=== PATIENT | male | born 1950 | race Caucasian/White ===

== ENCOUNTER 2020-08-23 08:04 | Outpatient (REF) | payer BC, SELFPAY ==
[2020-08-23 10:12] LABS: Hematocrit 42.4 % (42-52); Hemoglobin 14.6 g/dl (14.0-18.0); Mean Corpuscular HGB Conc 34.4 g/dl (31.0-36.0); Mean Corpuscular Hemoglobin 31.5 pg (27.0-33.0); Mean Corpuscular Volume 91.4 fL (80-98); Mean Platelet Volume 11.6 fL (9.4-12.4); Platelet Count 191 X10*3/uL (160-400); Red Blood Count 4.64 X10*6/uL (4.60-5.80); Red Cell Distribution Width 12.4 % (11.0-16.0); White Blood Count 6.2 X10*3/uL (4.8-10.8)
[2020-08-23 10:27] LABS: Estimated Average Glucose 223 mg/dL; Hemoglobin A1c % 9.4 %
[2020-08-23 10:42] LABS: Alanine Aminotransferase 17 U/L (0-40); Albumin Level 4.5 g/dL (3.5-5.0); Alkaline Phosphatase 60 U/L (39-117); Anion Gap 14 (12-20); Aspartate Amino Transferase 15 U/L (5-37); Bilirubin Total 1.2 mg/dL (0.0-1.0); Blood Urea Nitrogen 9 mg/dL (9-16); Calcium 8.9 mg/dL (8.4-10.2); Carbon Dioxide 26 mmol/L (22-29); Chloride 103 mmol/L (96-108); Cholesterol 119 mg/dL; Estimated Glomerular Filt Rate > 60; Glucose Fasting 214 mg/dL (60-99); HDL Cholesterol 42 mg/dL; LDL Cholesterol Calculated 53 mg/dl; Potassium 4.2 mmol/L (3.3-5.1); Sodium 139 mmol/L (135-145); Total Protein 6.6 g/dL (6.5-8.0); Triglycerides 121 mg/dL
[2020-08-23 11:07] LABS: Prostate Specific Antigen Scr 0.18 ng/mL (<0.05-4.0); TSH reflex Free T4 2.24 uIU/mL (0.32-4.0)
== END 2020-08-23 08:05 | disposition home or self-care (01) ==
LOC: HO.10HDL 08:04
PROVIDERS: Visit Provider Physician Assistant
DX: E11.9 Type 2 diabetes mellitus without complications (principal); E78.5 Hyperlipidemia, unspecified; I10 Essential (primary) hypertension; I25.10 Atherosclerotic heart disease of native coronary artery without angina pectoris; Z12.5 Encounter for screening for malignant neoplasm of prostate
CPT/HCPCS: 36415; 80053; 80061; 83036; 84153; 84443; 85027

== ENCOUNTER → 2020-10-11 09:09 | Outpatient (BNVA) | payer BC, SELFPAY | PROVIDERS: PCP Internal Medicine; Visit Provider Nurse Practitioner Gerontology | DX: E11.65 Type 2 diabetes mellitus with hyperglycemia (principal); E11.42 Type 2 diabetes mellitus with diabetic polyneuropathy; E66.01 Morbid (severe) obesity due to excess calories; Z68.35 Body mass index [BMI] 35.0-35.9, adult; I10 Essential (primary) hypertension | CPT/HCPCS: 82947 ==

== ENCOUNTER → 2020-11-26 13:26 | Outpatient (BNVA) | payer BC, SELFPAY | PROVIDERS: PCP Internal Medicine; Visit Provider Nurse Practitioner Gerontology | DX: E11.65 Type 2 diabetes mellitus with hyperglycemia (principal); E11.42 Type 2 diabetes mellitus with diabetic polyneuropathy; I10 Essential (primary) hypertension; E66.01 Morbid (severe) obesity due to excess calories; Z68.35 Body mass index [BMI] 35.0-35.9, adult | CPT/HCPCS: 82947 ==

== ENCOUNTER → 2020-12-09 14:28 | Outpatient (BNVA) | payer BC, SELFPAY | PROVIDERS: PCP Internal Medicine; Visit Provider Nurse Practitioner Gerontology | DX: E11.42 Type 2 diabetes mellitus with diabetic polyneuropathy (principal); I10 Essential (primary) hypertension; E66.01 Morbid (severe) obesity due to excess calories; Z68.35 Body mass index [BMI] 35.0-35.9, adult | CPT/HCPCS: 82947 ==

== ENCOUNTER 2021-02-21 14:01 | Outpatient (REF) | payer MEDICARE, SELFPAY ==
--- NOTE | ~2021-02-21 | XR_ITS ---
EXAMINATION: XR SHOULDER, LEFT CLINICAL INFORMATION: Left shoulder pain. COMPARISON: None TECHNIQUE: AP external rotation, Grashey, scapular Y, and axillary views of the left shoulder. FINDINGS: There is mild loss of the left glenohumeral and AC joint space with moderate periarticular spurring. No fracture or dislocation is seen. The soft tissues are normal. 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 There is hypertrophic bony spurring around the left AC joint. No acute fracture or dislocation.
== END 2021-02-21 14:02 | disposition home or self-care (01) ==
LOC: HO.XRAY 14:01
PROVIDERS: PCP Internal Medicine; Visit Provider Internal Medicine
DX: M25.512 Pain in left shoulder (principal)
CPT/HCPCS: 73030

== ENCOUNTER → 2021-03-18 14:27 | Outpatient (BNVA) | payer MEDICARE, SELFPAY | PROVIDERS: PCP Internal Medicine; Visit Provider Nurse Practitioner Gerontology | DX: E11.65 Type 2 diabetes mellitus with hyperglycemia (principal); E11.42 Type 2 diabetes mellitus with diabetic polyneuropathy; E66.01 Morbid (severe) obesity due to excess calories; I10 Essential (primary) hypertension; E78.5 Hyperlipidemia, unspecified; Z68.34 Body mass index [BMI] 34.0-34.9, adult; Z79.84 Long term (current) use of oral hypoglycemic drugs; Z79.899 Other long term (current) drug therapy | CPT/HCPCS: 82947; 99212 ==

== ENCOUNTER → 2021-07-29 10:08 | Outpatient (BNVA) | payer MEDICARE, SELFPAY | PROVIDERS: PCP Internal Medicine; Visit Provider Nurse Practitioner Gerontology | DX: E11.9 Type 2 diabetes mellitus without complications (principal); E78.5 Hyperlipidemia, unspecified; E66.01 Morbid (severe) obesity due to excess calories; I10 Essential (primary) hypertension; R23.4 Changes in skin texture; Z68.35 Body mass index [BMI] 35.0-35.9, adult; Z79.84 Long term (current) use of oral hypoglycemic drugs | CPT/HCPCS: 82947; 83036; 99212 ==

== ENCOUNTER 2021-11-10 07:49 | Outpatient (REF) | payer MEDICARE, SELFPAY ==
[2021-11-10 11:49] LABS: Alanine Aminotransferase 24 U/L (0-40); Albumin Level 4.5 g/dL (3.5-5.0); Alkaline Phosphatase 71 U/L (39-117); Anion Gap 11 (12-20); Aspartate Amino Transferase 16 U/L (5-37); Bilirubin Total 0.9 mg/dL (0.0-1.0); Blood Urea Nitrogen 11 mg/dL (9-16); Calcium 9.9 mg/dL (8.4-10.2); Carbon Dioxide 24 mmol/L (22-29); Chloride 109 mmol/L (96-108); Cholesterol 124 mg/dL; Estimated Glomerular Filt Rate > 60; Glucose Fasting 149 mg/dL (60-99); HDL Cholesterol 39 mg/dL; LDL Cholesterol Calculated 47 mg/dl; Potassium 4.3 mmol/L (3.3-5.1); Sodium 140 mmol/L (135-145); Total Protein 6.8 g/dL (6.5-8.0); Triglycerides 191 mg/dL
[2021-11-10 12:35] LABS: Creatinine Urine 160.26 mg/dL; Microalbum/Creatinine Ratio Ur 16.2 ug/mg cr
[2021-11-10 13:36] LABS: Reflex LDLD? No
== END 2021-11-10 07:50 | disposition home or self-care (01) ==
LOC: HO.10HDL 07:49
PROVIDERS: Nurse Practitioner Gerontology; Visit Provider Internal Medicine
DX: E11.42 Type 2 diabetes mellitus with diabetic polyneuropathy (principal); I48.91 Unspecified atrial fibrillation
CPT/HCPCS: 36415; 80053; 80061; 82043

== ENCOUNTER → 2021-11-12 14:45 | Outpatient (BNVA) | payer MEDICARE, SELFPAY | PROVIDERS: PCP Internal Medicine; Visit Provider Nurse Practitioner Gerontology | DX: E11.42 Type 2 diabetes mellitus with diabetic polyneuropathy (principal); I10 Essential (primary) hypertension; E78.5 Hyperlipidemia, unspecified; E66.01 Morbid (severe) obesity due to excess calories; Z68.35 Body mass index [BMI] 35.0-35.9, adult; Z79.84 Long term (current) use of oral hypoglycemic drugs; Z79.899 Other long term (current) drug therapy | CPT/HCPCS: 82947; 83036; 99212 ==

== ENCOUNTER 2022-09-18 08:22 | Day surgery (SDC) | payer MEDICARE, SELFPAY ==
--- NOTE | 2022-09-17 11:03 | HO.ANESPROP2 ---
Documented by User: Bridget Bravo NP 09/17/22 11:07 HPI - Anesthesia Eval Consult details Narrative: 72yo M for Colonoscopy Plavix/ASA for hx stroke (15 years ago), CAD - follows PCP only. OK'd to stop preop. PMFSH Active Problems Active Problems: All Active Problems (Updated 01/20/22 @ 14:02 by Jose Kaplan MD) Physical exam (Acute) Cracked skin on feet (Acute) Obesity (Acute) Shoulder pain (Acute) Type 2 diabetes mellitus with hyperglycemia (Acute) Essential hypertension (Acute) Obesity due to excess calories (Acute) CAD (coronary artery disease) (Acute) DMII (diabetes mellitus, type 2) (Acute) HLD (hyperlipidemia) (Acute) Past Medical History Medical History Essential hypertension Hyperlipidemia LDL goal <100 Obesity Obesity due to excess calories Sleep apnea Stroke Type 2 diabetes mellitus with hyperglycemia Family History Family History Father Myocardial infarction Colon cancer Mother CHF (congestive heart failure) Brother Colon cancer Surgical History Surgical History Hx of colonoscopy Social History Social History Household Members: None Housing: House Alcohol intake: current Alcohol intake frequency: 0-2 drinks per day Patient Tobacco Use Status: Former Tobacco user Tobacco use type: Cigarette Cigarettes Per Day: 2 e-Cigarette/Vaping Use: Never Used Second Hand Smoke Exposure: No Use of substances other than those prescribed or required for medical reasons: No Are you DNR?: No Advance Directives: No Advance Directives Information Provided: Yes Recently lost weight without trying: No Nutrition Risks: No Nutritional Risk service: No Current occupational status: retired Cognitive needs: No Hearing needs: No Vision needs: No Meds Allergies Allergy/AdvReac Type Severity Reaction Status Date / Time No Known Allergies Allergy Unknown Verified 01/20/22 13:42 [No Known Allergies*] Home Medications Medication Instructions Recorded Confirmed Last Taken Type aspirin 81 mg tablet,delayed 81 mg PO DAILY 06/03/20 09/18/22 Unknown History release (Adult Low Dose Aspirin) Exam Exam Date and Time: September 17, 2022 1103 Assessment and Plan Assessment Anesthesia Assessment: Chart Reviewed Documented by User: Estefany Todd MD 09/18/22 11:00 HPI - Anesthesia Eval Consult details Narrative: 72yo M for Colonoscopy Plavix/ASA for hx stroke (15 years ago), CAD - follows PCP only. OK'd to stop preop. Plavix last dose 09/12/22. No aspirin for over 6 months. PMFSH Active Problems Active Problems: All Active Problems (Updated 10/08/22 @ 08:50 by Estefany Todd MD) Physical exam (Acute) Cracked skin on feet (Acute) Obesity (Acute) Shoulder pain (Acute) Type 2 diabetes mellitus with hyperglycemia (Acute) Essential hypertension (Acute) Obesity due to excess calories (Acute) CAD (coronary artery disease) (Acute) DMII (diabetes mellitus, type 2) (Acute). Denies chest pain, NC history HLD (hyperlipidemia) (Acute) ELIU. Does not use CPAP machine Past Medical History Medical History Essential hypertension Hyperlipidemia LDL goal <100 Obesity Obesity due to excess calories Sleep apnea Stroke Type 2 diabetes mellitus with hyperglycemia Family History Family History Father Myocardial infarction Colon cancer Mother CHF (congestive heart failure) Brother Colon cancer Family history of problems with anesthesia: No Surgical History Surgical History Hx of colonoscopy History of Problems with Anesthesia: No Social History Social History Household Members: None Housing: House Alcohol intake: current Alcohol intake frequency: 0-2 drinks per day Patient Tobacco Use Status: Former Tobacco user Tobacco use type: Cigarette Cigarettes Per Day: 2 e-Cigarette/Vaping Use: Never Used Second Hand Smoke Exposure: No Use of substances other than those prescribed or required for medical reasons: No Are you DNR?: No Advance Directives: No Advance Directives Information Provided: Yes Recently lost weight without trying: No Nutrition Risks: No Nutritional Risk service: No Current occupational status: retired Cognitive needs: No Hearing needs: No Vision needs: No Meds Allergies Allergy/AdvReac Type Severity Reaction Status Date / Time No Known Allergies Allergy Unknown Verified 01/20/22 13:42 [No Known Allergies*] Home Medications Medication Instructions Recorded Confirmed Last Taken Type aspirin 81 mg tablet,delayed 81 mg PO DAILY 06/03/20 09/18/22 Unknown History release (Adult Low Dose Aspirin) Exam Height,Weight and Vital Signs: Height 5 ft 7 in Weight 99.79 kg Vital Signs Temp Pulse Resp BP Pulse Ox O2 Del Method 97.5 F 108 H 16 114/70 94 09/18/22 09:09 09/18/22 09:09 09/18/22 09:09 09/18/22 09:09 09/18/22 09:09 09/18/22 09:09 Pertinent Lab Results Pertinent Lab Results: Lab Results 09/18/22 Range/Units 08:59 POC Glucose 166 H (60-115) mg/dL Airway Mallampati Class: II TM Dist: >3cm Neck ROM: Full Loose/Missing/Broken Teeth: Yes (Some missing teeth back. Caps top front intact) Heart: RRR Lungs: CTAB Assessment and Plan Assessment Anesthesia Assessment: Anesthesia Plan Discussed Final Anesthetic Review Family History of Problems with Anesthesia: No History of Problems with Anesthesia: No NPO: Yes ASA Class: III Final Preanesthetic Review: No Changes in Pt Med Stat, Meds/Allgs Chart Reviewed, Consent Obtained/Reviewed and Anes Risks/Benef Reviewed Patient Risk: Intermediate Procedure Risk: Low Assessment/Block/Sedation in SS: Assess/Block/Sedation-SS Anesthetic Plan Anesthetic Plan: MAC: Disposition: Standard PACU
[2022-09-18 08:48] VITALS: BMI 34.4
[2022-09-18 09:03] LABS: Glucose, Whole Blood 166 mg/dL (60-115)
[2022-09-18 09:09] VITALS: BP 114/70; PULSE 108; RESP 16; TEMP 36.4; O2SAT 94
[2022-09-18] MEDS: Lactated Ringers 1,000 ML 100 ML IVCONT (09:21)
[2022-09-18 10:31] VITALS: BP 133/73; PULSE 87; RESP 16; TEMP 36.1; O2SAT 95
--- NOTE | 2022-09-18 10:36 | P.BOP_ITS ---
Brief Operative Note Date of Service: 09/18/22 Pre-op diagnosis: Screening Post-op diagnosis: other (Polyps) Procedure: Colonoscopy to the cecum and TI with bx/removal of polyps Surgeon: Pranay Dawson Anesthesia: MAC Was an Furnace Operator And Tender used for this Procedure?: No Estimated blood loss (mL): 2.0 Pathology: other (A. Proximal ascending colon polyp B. Polyp at 30cm) Condition: stable Disposition: PACU
[2022-09-18 10:46] VITALS: BP 114/62; PULSE 74; RESP 18; TEMP 36.9; O2SAT 95
--- NOTE | 2022-09-18 22:44 | OP_ITS ---
SURGEON: Pranay Dawson MD INDICATIONS: The patient presents for evaluation of colorectal cancer screening and prior history of colon polyps. Full consent has been obtained from him for this, including risks of bleeding and perforation. PREOPERATIVE DIAGNOSIS: POSTOPERATIVE DIAGNOSIS: PROCEDURE PERFORMED: Colonoscopy to the cecum and terminal ileum with biopsy and removal of polyp. ESTIMATED BLOOD LOSS: COMPLICATIONS: ANESTHESIA: Medication used, monitored anesthesia care. ASSISTANTS: SPECIMENS: PREOPERATIVE DIAGNOSES: Colorectal cancer screening and personal history of colon polyps. POSTOPERATIVE DIAGNOSES: Colorectal cancer screening and personal history of colon polyps, diverticulosis, and internal hemorrhoids. DESCRIPTION OF PROCEDURE: The patient was placed in the left lateral decubitus position. The digital rectal exam revealed no abnormalities. The Olympus video pediatric colonoscope was entered into the rectum and advanced easily to the cecum. Once in the cecum, I did identify a normal-appearing cecal pouch with appendiceal orifice and a normal-appearing ileocecal valve. The terminal ileum was cannulated and appeared normal. The scope was withdrawn back in the colon. The entire cecum and ileocecal valve appeared normal. The scope was then slowly withdrawn assessing all mucosal surfaces carefully. Preparation was excellent. In the proximal ascending colon was a flat, approximately 4 mm polyp, which was biopsied and completely removed with a cold biopsy forceps. At 30 cm, was a flat, approximately 5 mm grossly adenomatous polyp, which was biopsied and removed completely with a cold biopsy forceps. There were several hyperplastic appearing polyps in the sigmoid colon and rectum, but these were not biopsied nor removed given their gross appearance and the fact that he is to go back on his Plavix. I did not visualize any sign of colitis nor angiodysplasia. There is a mild amount of sigmoid diverticulosis. In the rectum, the scope was retroflexed visualizing internal hemorrhoids, but no other pathology. The rectal mucosa appeared normal. The scope was straightened and withdrawn from the patient. He tolerated the procedure well and was returned to the recovery area in stable condition. IMPRESSION: 1. Colon polyps. 2. Diverticulosis. 3. Internal hemorrhoids. PLAN: The results of the biopsy will be checked. I would recommend a repeat colonoscopy in 5 years. He was advised to resume his Plavix in 48 hours. He will otherwise see me on a p.r.n. basis. MD LIA Smith/HECTOR / [phone]
== END 2022-09-18 11:10 | disposition home or self-care (01) ==
PROVIDERS: PCP Internal Medicine; Visit Provider Internal Medicine
PROC: 0DJD8ZZ Inspection of Lower Intestinal Tract, Via Natural or Artificial Opening Endoscopic (ICD-10-PCS; CPT 45378; principal; 2022-09-18 09:30)
DX: Z12.11 Encounter for screening for malignant neoplasm of colon (principal); Z86.010 Personal history of colon polyps; Z80.0 Family history of malignant neoplasm of digestive organs; D12.2 Benign neoplasm of ascending colon; D12.5 Benign neoplasm of sigmoid colon; K57.30 Diverticulosis of large intestine without perforation or abscess without bleeding; K64.8 Other hemorrhoids; I10 Essential (primary) hypertension; E11.9 Type 2 diabetes mellitus without complications; G47.30 Sleep apnea, unspecified; Z86.73 Personal history of transient ischemic attack (TIA), and cerebral infarction without residual deficits; Z79.899 Other long term (current) drug therapy; Z79.01 Long term (current) use of anticoagulants; Z79.85 Long-term (current) use of injectable non-insulin antidiabetic drugs
CPT/HCPCS: 45380; 82947; 88305

== ENCOUNTER 2023-06-30 10:17 | Outpatient (REF) | payer MEDICARE, SELFPAY ==
[2023-06-30 13:24] LABS: MANUAL DIFF FLAG NO
[2023-06-30 13:32] LABS: Basophils Percent Auto 0.6 % (0-2); Eosinophils Percent Auto 0.6 % (0-4); Hematocrit 41.3 % (42.0-52.0); Hemoglobin 14.2 g/dl (14.0-18.0); Imm Gran Abs Auto 0.01 X10*3/uL (0.00-0.03); Imm Gran Pct Auto 0.1 % (0.0-0.4); Lymphocytes Absolute Auto 2.1 X10*3/uL (1.2-4.9); Lymphocytes Percent Auto 28.9 % (20-40); Mean Corpuscular HGB Conc 34.4 g/dl (31.0-36.0); Mean Corpuscular Hemoglobin 31.3 pg (27.0-33.0); Mean Platelet Volume 10.7 fL (9.4-12.4); Monocytes Absolute Auto 0.5 X10*3/uL (0.1-1.2); Monocytes Percent Auto 7.3 % (2-11); Neutrophils Absolute Auto 4.5 x10*3/uL (2.0-8.3); Neutrophils Percent Auto 62.5 % (45-73); Platelet Count 207 X10*3/uL (160-400); Red Blood Count 4.54 X10*6/uL (4.60-5.80); Red Cell Distribution Width 12.9 % (11.0-16.0); White Blood Count 7.1 X10*3/uL (4.8-10.8)
[2023-06-30 13:50] LABS: Estimated Average Glucose 131 mg/dL; Hemoglobin A1c % 6.2 % (<6.0)
[2023-06-30 14:01] LABS: Microalbum/Creatinine Ratio Ur 18.7 ug/mg cr (<30)
[2023-06-30 14:05] LABS: Alanine Aminotransferase 21 U/L (0-40); Albumin Level 4.3 g/dL (3.5-5.0); Alkaline Phosphatase 63 U/L (39-117); Anion Gap 16 (12-20); Aspartate Amino Transferase 15 U/L (5-37); Bilirubin Total 0.9 mg/dL (0.0-1.0); Blood Urea Nitrogen 9 mg/dL (9-16); Calcium 9.3 mg/dL (8.4-10.2); Carbon Dioxide 22 mmol/L (22-29); Chloride 107 mmol/L (96-108); Cholesterol 115 mg/dL (<200); Estimated Glomerular Filt Rate > 60; Glucose Fasting 146 mg/dL (60-99); HDL Cholesterol 42 mg/dL (>40); LDL Cholesterol Calculated 48 mg/dL (<100); Potassium 4.2 mmol/L (3.3-5.1); Sodium 141 mmol/L (135-145); Total Protein 6.9 g/dL (6.5-8.0); Triglycerides 129 mg/dL (<150)
[2023-06-30 14:06] LABS: Prostate Specific Antigen Scr 0.28 ng/mL (<0.05-4.0)
[2023-06-30 14:08] LABS: Thyroid Stimulating Hormone 2.29 uIU/mL (0.32-4.0)
== END 2023-06-30 10:18 | disposition home or self-care (01) ==
LOC: HO.10HDL 10:17
PROVIDERS: Visit Provider Internal Medicine
DX: Z00.00 Encounter for general adult medical examination without abnormal findings (principal); Z12.5 Encounter for screening for malignant neoplasm of prostate; D64.9 Anemia, unspecified; N28.9 Disorder of kidney and ureter, unspecified; E66.01 Morbid (severe) obesity due to excess calories; E78.5 Hyperlipidemia, unspecified; E03.9 Hypothyroidism, unspecified; E11.65 Type 2 diabetes mellitus with hyperglycemia; E11.69 Type 2 diabetes mellitus with other specified complication
CPT/HCPCS: 36415; 80053; 80061; 82043; 82570; 83036; 84153; 84443; 85025

== ENCOUNTER 2023-07-22 11:29 | Outpatient (AMB) | payer MEDICARE, SELFPAY ==
[2023-07-22 11:31] VITALS: BP 130/76; PULSE 76; O2SAT 96; BMI 34.6
--- NOTE | 2023-07-22 11:31 | MHC.PC.OV ---
Vital Signs 07/22/23 11:31 Height 5 ft 7 in Weight 221 lb BMI 34.6 BP 130/76 Blood Pressure Location Lt brachial Position Sitting Pulse 76 Pulse Source Pulse Oximeter Pulse Oximetry (%) 96 Oxygen Delivery Method Room Air Intake Visit Reasons: 6 month f/u Exercise Physiology Professor Required: No Can Sorter: Not Required per policy Accompanied by: Self / Same As Patient Allergies No Known Allergies [No Known Allergies*] Allergy (Unknown, Verified 07/22/23 11:32) Medication List - Last Reconciled 07/22/23 by Jose Kaplan MD atorvastatin 40 mg PO DAILY blood sugar diagnostic (Emay Softcomuch Verio test strips) To test blood glucose 3 times a day blood-glucose meter (Emay Softcomuch Verio Meter) To test blood glucose 3 times a day clopidogrel (Plavix) 75 mg PO DAILY 30 days dulaglutide (Trulicity) 1.5 mg (0.5 mL) subcut QWEEK 28 days flash glucose scanning reader ([facility] Seth 2 [place]) As directed flash glucose sensor (FreeStyle Seth 2 Sensor kit) As directed every 2 weeks glipizide 2.5 mg (1/2 x 5 mg) PO BID 90 days lancets (ClipMineTouch Delica Lancets) To test blood glucose 3 times a day lisinopril 5 mg PO DAILY metformin 1,000 mg PO BID 90 days Tobacco use date assessed: 01/21/23 Fall risk assessment: No Falls in past year Last assessed Fall Risk: 07/22/23 Dental Screening Dental Screen Date: 07/22/23 Did you have a dental visit in the last 12 months?: Yes Did you have a dental problem in the last 6 months where you did not have access to dental care?: No Was dental information given to patient?: Patient has dentist HPI 6 month f/u HPI Details DM HTN and hyperrlip on rx; doing well; compliant [facility] Medical History Sleep apnea Obesity Stroke Type 2 diabetes mellitus with hyperglycemia Hyperlipidemia LDL goal <100 Essential hypertension Obesity due to excess calories Surgical History Hx of colonoscopy Family History Father Myocardial infarction Colon cancer Mother CHF (congestive heart failure) Brother Colon cancer Social History Household Members: None Housing: House Alcohol intake: current Alcohol intake frequency: 0-2 drinks per day Patient Tobacco Use Status: Former Tobacco user Tobacco use type: Cigarette Cigarettes Per Day: 2 e-Cigarette/Vaping Use: Never Used Second Hand Smoke Exposure: No service: No Current occupational status: retired Cognitive needs: No Hearing needs: No Vision needs: No Questionnaire PHQ-9 Over the last 2 weeks, how often have you been bothered by any of the following problems? 1. Little interest or pleasure in doing things: not at all 2. Feeling down, depressed, or hopeless: not at all 3. Trouble falling or staying asleep, or sleeping too much: not at all 4. Feeling tired or having little energy: not at all 5. Poor appetite or overeating: not at all 6. Feeling bad about yourself - or that you are a failure or have let yourself or your family down: not at all 7. Trouble concentrating on things, such as reading the newspaper or watching television: not at all 8. Moving or speaking so slowly that other people could have noticed. Or the opposite - being so fidgety or restless that you have been moving around a lot more than usual: not at all 9. Thoughts that you would be better off or of hurting yourself in some way: not at all Total score: 0 Depression Screening Interpretation: Negative Depression Screening Done: Yes 04838 - PHQ-9 Billing: Yes Source: Developed by Drs. Pranay Becerril, Kirstin Solo, Pedro Pinto and colleagues, with an educational padmini from [employer]. Thrive Questionnaire Date Thrive assessed: 07/22/23 I am a: Patient What is your living situation today?: I have a steady place to live Within the past 12 months, did the food you bought not last and you didn't have the money to get more?: Never true Within the past 12 months, did you worry whether your food would run out before you got money to buy more?: Never true Do you have trouble paying for medicines?: No Do you have trouble getting transportation to medical appointments?: No Do you have trouble paying your heating and electricity bill?: No Do you have trouble taking care of your child, family member or friend?: No Do you have trouble with day-to-day activities such as bathing, preparing meals, shopping, managing finances, etc.?: No Are you currently unemployed and looking for a job?: No Are you interested in more education?: No Please select the resources that you would like help with: None AUDIT C Alcohol Use Questionnaire (AUDIT-C) 1. How often do you have a drink containing alcohol?: 2-3 times a week 2. How many drinks containing alcohol do you have on a typical day when you are drinking?: 1 or 2 3. How often do you have six or more drinks on one occasion?: Never Total Score: 3 Score Reviewed/Action Taken: Yes GENEVIEVE-7 AMB Questionnaire GENEVIEVE-7 Date GENEVIEVE - 7 assessed: 07/22/23 Feeling nervous, anxious, or on edge: 0 = Not at all Not being able to stop or control worryin = Not at all Worrying too much about different things: 0 = Not at all Trouble relaxin = Not at all Being so restless that it is hard to sit still: 0 = Not at all Becoming easily annoyed or irritable: 0 = Not at all Feeling afraid as if something awful might happen: 0 = Not at all Total GENEVIEVE-7 score (0-4 normal; 5-9 mild; 10-14 moderate; 15-21 severe): 0 Source: Developed by Drs. Pranay Becerril, Kirstin Solo, Pedro Pinto and colleagues, with an educational padmini from [employer]. GENEVIEVE-7 Assessment Billing GENEVIEVE-7 Assessment Tool: GENEVIEVE-7 Assessment 64182 Review of Systems Const Denies chills, Denies headache(s) and Denies weight loss ENT Denies headache(s) Card Denies chest pain, Denies syncope, Denies irregular heart rhythm and Denies dyspnea Resp Denies chest congestion, Denies cough and Denies dyspnea GI Denies abdominal pain, Denies change in stool character, Denies nausea and Denies vomiting Musc Denies deformity and Denies joint swelling Neuro Denies syncope and Denies headache(s) Physical exam (Primary Care) Vital Signs: Last Vital Signs Pulse 76 07/22/23 11:31 BP 130/76 07/22/23 11:31 Pulse Ox 96 07/22/23 11:31 Oxygen Delivery Method Room Air 07/22/23 11:31 BMI result Body Mass Index 34.6 Tobacco/Smoking Status: Tobacco use Status Tobacco use date assessed 01/21/23 07/22/23 11:31 Patient Tobacco Use Status Former Tobacco user 07/22/23 11:31 Tobacco use type Cigarette 07/22/23 11:31 e-Cigarette/Vaping Use Never Used 07/22/23 11:31 PHQ-9: PHQ-9 Score PHQ-9: Total score 0 07/22/23 11:37 Depression Screening Interpretation: Negative Thrive Assessment: Date of Thrive Assessment Date Thrive assessed 07/22/23 07/22/23 11:37 Const General: cooperative, comfortable, no acute distress and alert Neck Neck: Yes no lymphadenopathy Thyroid: Thyroid normal Resp Effort & Inspection: normal respiratory effort Auscultation: clear to auscultation bilaterally Percussion: percussion normal Cardio Jugular venous distension: no JVD Palpation: normal PMI Rate: regular rate Rhythm: regular rhythm Heart sounds: S1 normal heart sound present and S2 normal heart sound present GI Inspection: Yes normal to inspection Palpation (GI): No hepatosplenomegaly present Skin General skin exam: no rashes or lesions noted Extrem General: Yes no clubbing, cyanosis or edema Assessment and Plan Assessment & Plan (1) Diabetes mellitus with coincident hypertension: Code(s): E11.9 - Type 2 diabetes mellitus without complications; I10 - Essential (primary) hypertension Plan: stable; same rx (2) HLD (hyperlipidemia): Code(s): E78.5 - Hyperlipidemia, unspecified Plan: stable; same rx (3) Essential hypertension: Code(s): I10 - Essential (primary) hypertension Plan: stable Orders: Orders Lipid Panel Today E78.5 - Hyperlipidemia, unspecified Thyroid Stimulating Hormone Today E03.9 - Hypothyroidism, unspecified Complete Blood Count Auto Diff Today D64.9 - Anemia, unspecified Hemoglobin A1c Today R73.9 - Hyperglycemia, unspecified Comprehensive [place]. Panel Fast Today N28.9 - Disorder of kidney and ureter, unspecified Coding Level of Care Code Est Pt Level 4 (97433) Diagnoses Diabetes mellitus with coincident hypertension E11.9; I10 HLD (hyperlipidemia) E78.5 Essential hypertension I10 Additional Codes GENEVIEVE-7 Assessment Billing - GENEVIEVE-7 Assessment Tool: GENEVIEVE-7 Assessment [id number] ([id number])
== END 2023-07-22 11:44 | disposition home or self-care (01) ==
PROVIDERS: PCP Internal Medicine; Visit Provider Internal Medicine
DX: E11.9 Type 2 diabetes mellitus without complications (principal); I10 Essential (primary) hypertension; E78.5 Hyperlipidemia, unspecified
CPT/HCPCS: 99214

== ENCOUNTER 2023-12-16 07:43 | Outpatient (REF) | payer MEDICARE, SELFPAY ==
[2023-12-16 10:32] LABS: MANUAL DIFF FLAG NO
[2023-12-16 10:39] LABS: Basophils Absolute Auto 0.1 X10*3/uL (0.0-0.2); Basophils Percent Auto 0.6 % (0-2); Eosinophils Absolute Auto 0.1 X10*3/uL (0.0-0.4); Eosinophils Percent Auto 0.6 % (0-4); Hematocrit 42.7 % (42.0-52.0); Hemoglobin 14.7 g/dl (14.0-18.0); Imm Gran Abs Auto 0.02 X10*3/uL (0.00-0.03); Imm Gran Pct Auto 0.2 % (0.0-0.4); Lymphocytes Absolute Auto 2.3 X10*3/uL (1.2-4.9); Lymphocytes Percent Auto 25.4 % (20-40); Mean Corpuscular HGB Conc 34.4 g/dl (31.0-36.0); Mean Corpuscular Hemoglobin 31.5 pg (27.0-33.0); Mean Corpuscular Volume 91.4 fL (80.0-98.0); Mean Platelet Volume 10.6 fL (9.4-12.4); Monocytes Absolute Auto 0.6 X10*3/uL (0.1-1.2); Monocytes Percent Auto 6.9 % (2-11); Neutrophils Percent Auto 66.3 % (45-73); Platelet Count 246 X10*3/uL (160-400); Red Blood Count 4.67 X10*6/uL (4.60-5.80); Red Cell Distribution Width 12.9 % (11.0-16.0)
[2023-12-16 10:45] LABS: Estimated Average Glucose 166 mg/dL; Hemoglobin A1c % 7.4 % (<6.0)
[2023-12-16 11:13] LABS: Alanine Aminotransferase 25 U/L (0-40); Albumin Level 4.6 g/dL (3.5-5.0); Alkaline Phosphatase 67 U/L (39-117); Anion Gap 16 (12-20); Aspartate Amino Transferase 18 U/L (5-37); Bilirubin Total 1.4 mg/dL (0.0-1.0); Blood Urea Nitrogen 16 mg/dL (9-16); Calcium 9.9 mg/dL (8.4-10.2); Carbon Dioxide 24 mmol/L (22-29); Chloride 105 mmol/L (96-108); Cholesterol 110 mg/dL (<200); Estimated Glomerular Filt Rate > 60; Glucose Fasting 166 mg/dL (60-99); HDL Cholesterol 51 mg/dL (>40); LDL Cholesterol Calculated 38 mg/dL (<100); Potassium 4.5 mmol/L (3.3-5.1); Sodium 140 mmol/L (135-145); Thyroid Stimulating Hormone 1.86 uIU/mL (0.32-4.0); Total Protein 7.2 g/dL (6.5-8.0); Triglycerides 106 mg/dL (<150)
== END 2023-12-16 07:44 | disposition home or self-care (01) ==
LOC: HO.10HDL 07:43
PROVIDERS: Visit Provider Internal Medicine
DX: E78.5 Hyperlipidemia, unspecified (principal); R73.9 Hyperglycemia, unspecified; N28.9 Disorder of kidney and ureter, unspecified; E03.9 Hypothyroidism, unspecified; D64.9 Anemia, unspecified
CPT/HCPCS: 36415; 80053; 80061; 83036; 84443; 85025

== ENCOUNTER 2023-12-22 15:06 | Outpatient (AMB) | payer MEDICARE, SELFPAY ==
[2023-12-22 15:08] VITALS: BP 122/78; PULSE 74; O2SAT 97; BMI 34.9
--- NOTE | 2023-12-22 15:08 | MHC.PC.OV ---
Vital Signs 12/22/23 15:08 Height 5 ft 7 in Weight 223 lb 2 oz BMI 34.9 BP 122/78 Blood Pressure Location Lt brachial Position Sitting Pulse 74 Pulse Source Pulse Oximeter Pulse Oximetry (%) 97 Oxygen Delivery Method Room Air Intake Visit Reasons: cant sleep Intake Note: Dr. Kaplan's patient is here for three concerns: The patient has been unable to sleep for the past two weeks and, despite using melatonin, only manages to sleep for 2-3 hours. The patient has been experiencing dizziness, possibly due to low blood sugar levels from light meals, and has been experiencing an upset stomach after meals. 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 Accompanied by: Self / Same As Patient Allergies No Known Allergies [No Known Allergies*] Allergy (Unknown, Verified 12/22/23 15:25) Medication List - Last Reconciled 12/22/23 by Corey Sarmiento PA-C atorvastatin 40 mg PO DAILY blood sugar diagnostic (Ener1Touch Verio test strips) To test blood glucose 3 times a day blood-glucose meter (Ener1Touch Verio Meter) To test blood glucose 3 times a day clopidogrel (Plavix) 75 mg PO DAILY 30 days dulaglutide (Trulicity) 1.5 mg (0.5 mL) subcut QWEEK 28 days flash glucose scanning reader (FreeStyle Seth 2 [place]) As directed flash glucose sensor (FreeStyle Seth 2 Sensor kit) As directed every 2 weeks glipizide 2.5 mg (1/2 x 5 mg) PO BID 90 days lancets (OneTouch Delica Lancets) To test blood glucose 3 times a day lisinopril 5 mg PO DAILY metformin 1,000 mg PO BID 90 days Tobacco use date assessed: 12/22/23 Dental Screening Dental Screen Date: 12/22/23 Did you have a dental visit in the last 12 months?: Yes Did you have a dental problem in the last 6 months where you did not have access to dental care?: No Was dental information given to patient?: Patient has dentist HPI cant sleep HPI Details Patient is a 73-year-old male here today for problem visit. He reports he has been having trouble sleeping despite the use of melatonin. He also reports feeling worsening dizziness associated with head movements and change in body position. Does feel some epigastric discomfort and nausea at times of his dizziness as well. He has not been able to sleep as he is been feeling dizzy when he lays down. Reviewed most recent labs and electrolytes, kidney function and complete blood count were all normal. Sugars have been stable. [facility] Medical History Sleep apnea Obesity Stroke Type 2 diabetes mellitus with hyperglycemia Hyperlipidemia LDL goal <100 Essential hypertension Obesity due to excess calories Surgical History Hx of colonoscopy Family History Father Myocardial infarction Colon cancer Mother CHF (congestive heart failure) Brother Colon cancer Social History Household Members: None Housing: House Alcohol intake: current Alcohol intake frequency: 0-2 drinks per day Patient Tobacco Use Status: Former Tobacco user Tobacco use type: Cigarette Cigarettes Per Day: 2 e-Cigarette/Vaping Use: Never Used Second Hand Smoke Exposure: No service: No Current occupational status: retired Cognitive needs: No Hearing needs: No Vision needs: No Questionnaire PHQ-9 Over the last 2 weeks, how often have you been bothered by any of the following problems? 1. Little interest or pleasure in doing things: not at all 2. Feeling down, depressed, or hopeless: not at all 3. Trouble falling or staying asleep, or sleeping too much: not at all 4. Feeling tired or having little energy: not at all 5. Poor appetite or overeating: not at all 6. Feeling bad about yourself - or that you are a failure or have let yourself or your family down: not at all 7. Trouble concentrating on things, such as reading the newspaper or watching television: not at all 8. Moving or speaking so slowly that other people could have noticed. Or the opposite - being so fidgety or restless that you have been moving around a lot more than usual: not at all 9. Thoughts that you would be better off or of hurting yourself in some way: not at all Total score: 0 Depression Screening Interpretation: Negative Depression Screening Done: Yes 83583 - PHQ-9 Billing: Yes Source: Developed by Drs. Kirstin Wise, Pedro Pinto and colleagues, with an educational padmini from [employer]. Thrive Questionnaire Date Thrive assessed: 12/22/23 GENEVIEVE-7 AMB Questionnaire GENEVIEVE-7 Date GENEVIEVE - 7 assessed: 07/22/23 Source: Developed by Kirstin Felix, Pedro Pinto and colleagues, with an educational padmini from [employer]. Review of Systems Const Denies headache(s) Eyes Denies loss of vision ENT Reports vertigo, Reports dizziness, Denies headache(s) and Denies sore throat Card Denies chest pain, Denies leg edema and Denies lightheadedness Resp Denies cough, Denies hemoptysis and Denies wheezing GI Denies abdominal pain, Denies melena, Denies constipation, Denies diarrhea and Denies vomiting Denies dysuria, Denies urinary frequency and Denies urinary urgency Musc Denies arthralgias, Denies joint swelling, Denies numbness and Denies tingling Neuro Denies Abnormal speech present, Denies behavioral changes, Reports vertigo, Reports dizziness, Denies headache(s), Denies loss of vision, Denies memory loss, Denies numbness and Denies tingling Psych Denies anxiety, Denies behavioral changes, Denies depression, Denies memory loss and Denies panic attacks Kuldeep/Lymph Denies easy bleeding and Denies easy bruising Aller/Immun Denies wheezing Physical exam (Primary Care) Vital Signs: Last Vital Signs Pulse 74 12/22/23 15:08 BP 122/78 12/22/23 15:08 Pulse Ox 97 12/22/23 15:08 Oxygen Delivery Method Room Air 12/22/23 15:08 BMI result Body Mass Index 34.9 Tobacco/Smoking Status: Tobacco use Status Tobacco use date assessed 12/22/23 12/22/23 15:13 Patient Tobacco Use Status Former Tobacco user 12/22/23 15:13 Tobacco use type Cigarette 12/22/23 15:13 e-Cigarette/Vaping Use Never Used 12/22/23 15:13 PHQ-9: PHQ-9 Score PHQ-9: Total score 0 12/22/23 15:28 Depression Screening Interpretation: Negative Thrive Assessment: Date of Thrive Assessment Date Thrive assessed 12/22/23 12/22/23 15:13 Const General: healthy appearing, no acute distress, alert and awake Nutritional Appearance: well nourished Orientation/consciousness: oriented to person, oriented to place and oriented to time HENMT Other: POSITIVE NYSTAGMUS WITH JAJA-HALLPIKE MANEUVER BILATERALLY. Ears: TM's normal bilaterally General nose exam: Normal nasal mucous membranes and turbinates present Eyes Conjunctivae: conjunctivae normal Sclerae: sclerae normal Pupils: Equal, round and reactive pupils present Neck Neck: Yes no lymphadenopathy and Yes no JVD Thyroid: Thyroid normal Carotids: no bruits Resp Effort & Inspection: normal respiratory effort and not tachypneic Auscultation: no crackles, no rales, no rhonchi and no wheezes Cardio Rate: regular rate Rhythm: regular rhythm Heart sounds: no murmurs and normal S1 and S2 GI Palpation (GI): Soft to palpation, nontender, no hepatomegaly and no splenomegaly Auscultation: normal bowel sounds Skin General skin exam: no rashes or lesions noted and dry skin Neuro General: oriented to person, oriented to place and oriented to time Cranial nerves: Yes Equal, round and reactive pupils present Speech: No Abnormal speech present Gait exam (Neuro): Normal gait present Motor exam (neuro): no tremor noted Extrem Right upper extremity: full ROM Left upper extremity: full ROM Right lower extremity: full ROM; no edema Left lower extremity: full ROM; no edema Psych Mental Status: mental status grossly normal Speech and movement: Normal speech and movement present Affect: normal affect Attitude: cooperative Thought process: Normal thought process present Office Procedures EKG Details: EKG showing sinus rhythm, rate in the 80s. Please see scanned in document [id number], Complete Assessment and Plan Assessment & Plan (1) BPPV (benign paroxysmal positional vertigo): Code(s): H81.10 - Benign paroxysmal vertigo, unspecified ear Qualifiers: Laterality: bilateral Qualified Code(s): H81.13 - Benign paroxysmal vertigo, bilateral Plan: Patient's signs and symptoms of dizziness associated with head move his body position are most consistent with benign paroxysmal vertigo. EKG today in office showing sinus rhythm with a rate of 87. Most recent labs without anemia, electrolyte deficiency and normal stable blood sugars. Did have positive nystagmus on Lester-Hallpike testing today. Will supply patient with meclizine and refer to vestibular therapy. (2) Epigastric abdominal pain: Code(s): R10.13 - Epigastric pain (3) Insomnia: Code(s): G47.00 - Insomnia, unspecified Qualifiers: Insomnia type: primary Qualified Code(s): F51.01 - Primary insomnia Plan: Will supply patient with trazodone 50 mg take half tablet before bed for his sleeping issue. Orders: Orders AMB EKG-In Office 12/22/23 H81.10 - Benign paroxysmal vertigo, unspecified ear, Z01.818 - Encounter for other preprocedural examination PT Evaluation and Treatment 12/22/23 H81.10 - Benign paroxysmal vertigo, unspecified ear Medications: New meclizine 25 mg PO TID 30 tabs 0RF 10 days H81.10 - Benign paroxysmal vertigo, unspecified ear trazodone 25 mg (1/2 x 50 mg) PO DAILY 7 tabs 0RF 14 days G47.00 - Insomnia, unspecified Coding Level of Care Code Est Pt Level 3 (59434) Diagnoses Benign paroxysmal positional vertigo due to bilateral vestibular disorder H81.13 Laterality: bilateral Epigastric abdominal pain R10.13 Primary insomnia F51.01 Insomnia type: primary CPT Codes EKG - CPT: 89407-[id number], Complete ([id number])
== END 2023-12-22 15:56 | disposition home or self-care (01) ==
PROVIDERS: PCP Internal Medicine; Visit Provider Physician Assistant
DX: H81.13 Benign paroxysmal vertigo, bilateral (principal); R10.13 Epigastric pain; F51.01 Primary insomnia
CPT/HCPCS: 93000; 99213

== ENCOUNTER 2024-01-06 19:52 | Outpatient (REF) | payer MEDICARE, SELFPAY ==
--- NOTE | ~2024-01-06 | MR_ITS ---
EXAMINATION: MR BRAIN WITHOUT CONTRAST CLINICAL INFORMATION: Vertigo, nystagmus, history of CVA COMPARISON: MRI of the brain with and without contrast 12/04/2006 TECHNIQUE: Multiplanar multisequence MR imaging of the brain was obtained without intravenous contrast. Study was terminated prematurely. Only axial T2 FLAIR and DWI and sagittal T1 weighted images were obtained. FINDINGS: Examination was not completed due to patient nausea. There is an equivocal punctate focus of reduced diffusion in the right frontal lobe (series 3 image 26) which could represent an acute to subacute infarct. No corresponding FLAIR signal abnormality. No other signal abnormality on diffusion-weighted imaging. No mass effect or midline shift. No extra-axial collection is identified. Mild generalized volume loss with commensurate sulcal and ventricular prominence. There is mild ex vacuo dilatation of the left lateral ventricle. No evidence of hydrocephalus. Chronic lacunar infarct in the left swanson radiata and posterior left lentiform nucleus. The midline structures appear normal. Normal positioning of the cerebellar tonsils. Normal marrow signal. MR/MR head/brain wo con IMPRESSION: Incomplete limited examination which was terminated prematurely due to patient nausea. 1. There is an equivocal punctate focus of acute to subacute ischemia in the superior right frontal lobe, favored to be artifactual. 2. Chronic lacunar infarct in the left swanson radiata and lentiform nucleus As this exam was dictated after hours, a [place] senior windows administrator will contact the ordering provider with findings and recommendations at the start of the next business day.
== END 2024-01-06 19:53 | disposition home or self-care (01) ==
LOC: HO.MRI 19:52
PROVIDERS: PCP Physician Assistant; Visit Provider Physician Assistant
DX: H55.09 Other forms of nystagmus (principal); R42 Dizziness and giddiness
CPT/HCPCS: 70551

== ENCOUNTER 2024-01-21 13:00 | Outpatient (RCR) | payer MEDICARE, SELFPAY ==
[2024-01-03 12:53] VITALS: BP 120/72; PULSE 76; O2SAT 96
--- NOTE | 2024-01-04 08:11 | MHC.PT.EP ---
[facility] [employer] [place] Office [place] Office [place] Office [address] Shima Bey [address] [phone] F: [phone] F: [phone] F: [phone] F: [phone] Physical Therapy Plan of Care Date of Evaluation: 01/04/24 Date of Surgery: Diagnosis: This is a 73 yo male presenting to skilled PT with a script for vestibular rehab. Assessment: This is a 73 yo male presenting to skilled PT with a script for vestibular rehab. Patient reporting ongoing dizziness now for 3 weeks. Patient thought he had the flu at first. His main symptoms are that he feels nauseous as well as some dizziness. He is having a hard time describing exactly what he is feeling but states he cannot golf and this is what is bothering him. He was taking meclizine which was helping some however he states that it was making him constipated so he stopped. Of note, he also states that he is having a hard time sleeping as well. Additionally, he is a diabetic and he also states that he has only had a piece of cantaloupe, flax seed and coffee by the time he got to this appointment (1300). Examination shows + oculomotor tests demonstrating a resting vertical nystagmus as well, VBI was limited due to cervical ROM however demonstrates symptoms and vertical nystagmus with this tests. Static balance was compromised as evidenced by [place] SOPT noted above and DGI was not completed due to time. He became nauseous and had increased vertical nystagmus in R hallpike assessment. This nystagmus did not stop. At this point, PT stopped assessment and educated patient that further imaging/and or referral back to MD may be warranted due to symptoms and ? management of his DM dx. PT sent tiger text to referring PCP and imaging was ordered. Patient will be on hold for further vestibular management by PT until after imaging and if still indicated after this I will reassess him address impairments, implement HEP and optimize functional mobility as needed. Frequency and Duration: The patient will be seen Short Term Goals: on hold Senior Living Goals: on hold Treatment Plan: Modalities to reduce pain, spasms and effusion. Manual therapy to restore motion and function. Therapeutic exercise to improve strength and flexibility. Neuromuscular re-education for posture and balance. Therapeutic activities to return to functional activities of daily living. Electronically signed by: Jerica Osorio PT Please sign and return to therapist. Thank you for your referral.
--- NOTE | 2024-02-21 08:40 | MHC.PT.DC ---
[facility] [place] Office [place] Office [place] Office [address] Shima Bey [address] [phone] F: [phone] F: [phone] F: [phone] F: [phone] Physical Therapy Discharge Report Diagnosis: This is a 73 yo male presenting to skilled PT with a script for vestibular rehab. Date of Surgery: Date of Evaluation: 01/04/24 Date of Discharge: 02/21/24 Treatments to Date: 4 Cancellations to Date: 0 No Shows to Date: 0 Discharge Status: Recommend MD Follow-up Discharge Summary: 01/20: Patient with continued resting vertical nystagmus with change in positions and at rest. It increases in speed however never stops even when just sitting. He has an eye appointment on 02/08 for his annual vision assessment. He has not heard back for scheduling his neurology but is scheduled to see his PCP next week. I educated him that it does not appear that he has vertigo at this time and he should continue to follow up with his PCP in regards to further assessment/tests. Patient's chart was closed after 30 days. Electronically signed by: Jerica Osorio PT Please sign and return to therapist. Thank you for your referral.
== END 2024-02-21 08:40 | disposition home or self-care (01) ==
LOC: HO.PTCHIC 13:00
PROVIDERS: PCP Physician Assistant; Visit Provider Physician Assistant
DX: H81.10 Benign paroxysmal vertigo, unspecified ear (principal)
CPT/HCPCS: 95992; 97110; 97112; 97162

== ENCOUNTER 2024-01-26 13:39 | Outpatient (AMB) | payer MEDICARE, SELFPAY ==
--- NOTE | 2024-01-26 13:43 | A.OFFPC_ITS ---
Vital Signs 01/26/24 13:44 Height 5 ft 7 in Weight 221 lb BMI 34.6 BP 122/70 Blood Pressure Location Lt brachial Position Sitting Pulse 79 Pulse Source Pulse Oximeter Pulse Oximetry (%) 98 Oxygen Delivery Method Room Air Intake Visit Reasons: pe Hourly Caregiver: Not Required per policy Accompanied by: Self / Same As Patient Allergies No Known Allergies [No Known Allergies*] Allergy (Unknown, Verified 01/26/24 13:44) Medication List - Last Reconciled 01/27/24 by Jose Kaplan MD atorvastatin 40 mg PO DAILY blood sugar diagnostic ([employer]Touch Verio test strips) To test blood glucose 3 times a day blood-glucose meter ([employer] TechnologiesTouch Verio Meter) To test blood glucose 3 times a day clopidogrel (Plavix) 75 mg PO DAILY 30 days dulaglutide (Trulicity) 1.5 mg (0.5 mL) subcut QWEEK 28 days flash glucose scanning reader (ZopimStyle Seth 2 [place]) As directed flash glucose sensor (FreeStyle Seth 2 Sensor kit) As directed every 2 weeks glipizide 2.5 mg (1/2 x 5 mg) PO BID 90 days lancets ([employer]chengwuyou Delica Lancets) To test blood glucose 3 times a day lisinopril 5 mg PO DAILY meclizine 25 mg PO TID 30 days metformin 1,000 mg PO BID 90 days trazodone 50 mg PO DAILY 14 days Tobacco use date assessed: 12/22/23 Fall risk assessment: No Falls in past year Last assessed Fall Risk: 01/26/24 Dental Screening Dental Screen Date: 12/22/23 HPI pe HPI Details diabetes hyperlipidemia and htn on rx; doing well; compliant [facility] Medical History Sleep apnea Obesity Stroke Type 2 diabetes mellitus with hyperglycemia Hyperlipidemia LDL goal <100 Essential hypertension Obesity due to excess calories Surgical History Hx of colonoscopy Family History Father Myocardial infarction Colon cancer Mother CHF (congestive heart failure) Brother Colon cancer Social History Household Members: None Housing: House Alcohol intake: current Alcohol intake frequency: 0-2 drinks per day Patient Tobacco Use Status: Former Tobacco user Tobacco use type: Cigarette Cigarettes Per Day: 2 e-Cigarette/Vaping Use: Never Used Second Hand Smoke Exposure: No service: No Current occupational status: retired Cognitive needs: No Hearing needs: No Vision needs: No Questionnaire Thrive Questionnaire Date Thrive assessed: 12/22/23 GENEVIEVE-7 AMB Questionnaire GENEVIEVE-7 Date GENEVIEVE - 7 assessed: 07/22/23 Source: Developed by Drs. Pranay Becerril, Kirstin Solo, Pedro Pinto and colleagues, with an educational padmini from [employer]. Review of Systems Const Denies chills, Denies headache(s) and Denies weight loss ENT Denies headache(s) Card Denies chest pain, Denies syncope, Denies irregular heart rhythm and Denies dyspnea Resp Denies chest congestion, Denies cough and Denies dyspnea GI Denies abdominal pain, Denies change in stool character, Denies nausea and Denies vomiting Musc Denies deformity and Denies joint swelling Neuro Denies syncope and Denies headache(s) Physical exam (Primary Care) Vital Signs: Last Vital Signs Pulse 79 01/26/24 13:44 BP 122/70 01/26/24 13:44 Pulse Ox 98 01/26/24 13:44 Oxygen Delivery Method Room Air 01/26/24 13:44 BMI result Body Mass Index 34.6 Tobacco/Smoking Status: Tobacco use Status Tobacco use date assessed 12/22/23 01/26/24 13:48 Patient Tobacco Use Status Former Tobacco user 01/26/24 13:48 Tobacco use type Cigarette 01/26/24 13:48 e-Cigarette/Vaping Use Never Used 01/26/24 13:48 Thrive Assessment: Date of Thrive Assessment Date Thrive assessed 12/22/23 01/26/24 13:48 Const General: cooperative, comfortable, no acute distress and alert Neck Neck: Yes no lymphadenopathy Thyroid: Thyroid normal Resp Effort & Inspection: normal respiratory effort Auscultation: clear to auscultation bilaterally Percussion: percussion normal Cardio Jugular venous distension: no JVD Palpation: normal PMI Rate: regular rate Rhythm: regular rhythm Heart sounds: S1 normal heart sound present and S2 normal heart sound present GI Inspection: Yes normal to inspection Palpation (GI): No hepatosplenomegaly present Skin General skin exam: no rashes or lesions noted Extrem General: Yes no clubbing, cyanosis or edema Assessment and Plan Assessment & Plan (1) Diabetes mellitus with coincident hypertension: Code(s): E11.9 - Type 2 diabetes mellitus without complications; I10 - Essential (primary) hypertension Plan: stable; same rx (2) Essential hypertension: Code(s): I10 - Essential (primary) hypertension Plan: stable; same rx (3) HLD (hyperlipidemia): Code(s): E78.5 - Hyperlipidemia, unspecified Plan: stable; same rx Orders: Orders Glucose Fasting 01/26/24 R73.9 - Hyperglycemia, unspecified Hemoglobin A1c 01/26/24 R73.9 - Hyperglycemia, unspecified US carotid duplex BI 01/26/24 G45.9 - Transient cerebral ischemic attack, unspecified Coding Level of Care Code Est Pt Level 3 (79863) Diagnoses Diabetes mellitus with coincident hypertension E11.9; I10 Essential hypertension I10 HLD (hyperlipidemia) E78.5
[2024-01-26 13:44] VITALS: BP 122/70; PULSE 79; O2SAT 98; BMI 34.6
== END 2024-01-26 14:18 | disposition home or self-care (01) ==
PROVIDERS: PCP Internal Medicine; Visit Provider Internal Medicine
DX: E11.9 Type 2 diabetes mellitus without complications (principal); I10 Essential (primary) hypertension; E78.5 Hyperlipidemia, unspecified
CPT/HCPCS: 99213

== ENCOUNTER 2024-02-09 10:31 | Outpatient (REF) | payer MEDICARE, SELFPAY ==
--- NOTE | ~2024-02-09 | US_ITS ---
EXAMINATION: US EXTRACRANIAL CAROTID DUPLEX, BILATERAL CLINICAL INFORMATION: TIA, history of hypertension, smoking, hyperlipidemia COMPARISON: None available. TECHNIQUE: Real-time ultrasound and Doppler techniques (integrating B-mode 2-D vascular images, Doppler spectral analysis and color-flow Doppler imaging) were utilized to interrogate the extracranial carotid arteries, the vertebral arteries and proximal subclavian arteries bilaterally. The degree of stenosis is determined by criteria similar to NASCET. FINDINGS: Right Side: 1. There is mild atherosclerotic plaque seen in the bifurcation/proximal ICA region. 2. The common carotid artery PSV proximally is 90 cm/s and distally 88 cm/s. 3. The proximal internal carotid artery velocities are 72 cm/s systolic and 27 cm/s diastolic. 4. The proximal external carotid artery PSV is 88 cm/s. 5. The vertebral artery shows antegrade flow. 6. The subclavian artery waveforms are normal. Left Side: 1. There is mild atherosclerotic plaque seen in the bifurcation/proximal ICA region. 2. The common carotid artery PSV proximally is 86 cm/s and distally 77 cm/s. 3. The proximal internal carotid artery velocities are 100 cm/s systolic and 36 cm/s diastolic. 4. The proximal external carotid artery PSV is 112 cm/s. 5. The vertebral artery shows antegrade flow. 6. The subclavian artery waveforms are normal. US/US carotid duplex BI IMPRESSION: 1. RIGHT: Minimal, non-hemodynamically significant stenosis of the proximal right internal carotid artery corresponding to a 0-49% stenosis by velocity criteria. 2. LEFT: Minimal, non-hemodynamically significant stenosis of the proximal left internal carotid artery corresponding to a 0-49% stenosis by velocity criteria.
== END 2024-02-09 10:32 | disposition home or self-care (01) ==
LOC: HO.US 10:31
PROVIDERS: PCP Internal Medicine; Visit Provider Internal Medicine
DX: G45.9 Transient cerebral ischemic attack, unspecified (principal)
CPT/HCPCS: 93880

== ENCOUNTER 2024-06-21 10:02 | Outpatient (REF) | payer MEDICARE, SELFPAY ==
[2024-06-21 11:01] LABS: Estimated Average Glucose 183 mg/dL; Total Hemoglobin (HGBA1C) 3647.3691 umol/L
[2024-06-21 11:23] LABS: Glucose Fasting 187 mg/dL (60-99)
--- OUTSIDE RECORDS SUMMARY | 2024-06-27 17:25 | XMS_ITS | Patient Health Record ---
Author Organization [facility] Address [address] [place] [address] Care Team Providers Care Behavioral Health Tech Name Role Phone Jose Kaplan MD Primary Care Provider Jennaa Pranay Tellez Unavailable [phone] REASON FOR REFERRAL No Information MEDICATIONS Medication SIG (Take, Route, Frequency, Duration) Notes Start Date End Date Status Atorvastatin Calcium 40 MG Oral for 90 Active metFORMIN HCl 1000 MG TAKE ONE TABLET BY MOUTH TWICE A DAY Oral for 90 Active glipiZIDE 5 MG TAKE HALF OF A TABLE T BY MOUTH TWO TIMES A DAY Oral for 90 Active Fish Oil Active CoQ-10 Active Lisinopril 5 MG TAKE ONE TABLET BY M OUTH EVERY DAY Oral for 90 Active Clopidogrel Bisulfate 75 MG TAKE 1 TABLET BY MOUTH DAILY. Oral for 30 Active Trulicity 0.75 MG/0.5ML as directed Subc utaneous once a week Active Multivitamin Active Hxgxqh-Jdmttqpqt-ZXI Complex Active IMMUNIZATIONS Vaccine Route Administration Date Status Comme nts Influenza Unknown 07/26/2022 Administered SOCIAL HISTORY Sex Assigned At : Social History Observation Description Sex Assigned At Unknown PROBLEMS Problem Type ICD Code Onset Dates Problem Status W/U Status Risk SNOMED Code Notes Problem History of colon polyps (Z86.010) Active confirmed 310617231 Problem care home current use of anticoagulant (Z79.01) Active confirmed 805443748 Problem Family history of colon cancer (Z80.0) Active confirmed 956496261 Problem Colon cancer screening (Z12.11) Active confirmed 845704569 Problem Preprocedural examination (Z01.818) Active confirmed 890895904694842 Problem Diverticulosis of large intestine without perforation or abscess without bleeding (K57.30) Active confirmed Diverticul ar disease of colon (051808854) PLAN OF TREATMENT Future Test Test Name Order Date COLONOSCOPY 07/30/2022 Insurance Providers Payer Name Payer Address Payer Phone Subscriber Number Group Number Insured Name Patient Relationship to Insured Coverage Start Date Coverage End Date [facility] [address] [place] [address] [phone] [id number] Moreno Slaughter Self - patient is the insured MEDICAL (GENERAL) HISTORY Medical History History ICD Code CVA 15 years ago-no residual Sleep apnea , but not officially diagno sed and not using CPAP NIDDM Hypertension Urinary frequency Denies [place],Lung disease,renal disease Multiple colonoscopies and r emoval of polyps with Dr. Leggett--last one was at age 67 Surgical History Surgery Date(Month/Year)
== END 2024-06-21 10:03 | disposition home or self-care (01) ==
LOC: HO.10HDL 10:02
PROVIDERS: Visit Provider Internal Medicine
DX: R73.9 Hyperglycemia, unspecified (principal)
CPT/HCPCS: 36415; 82947; 83036

== ENCOUNTER 2024-06-27 14:07 | Outpatient (AMB) | payer MEDICARE, SELFPAY ==
[2024-06-27 14:10] VITALS: BP 134/68; PULSE 83; O2SAT 97; BMI 35.4
--- NOTE | 2024-06-27 14:10 | MHC.PC.OV ---
Vital Signs 06/27/24 14:10 Height 5 ft 7 in Weight 226 lb BMI 35.4 BP 134/68 Blood Pressure Location Lt brachial Position Sitting Pulse 83 Pulse Source Pulse Oximeter Pulse Oximetry (%) 97 Oxygen Delivery Method Room Air Intake Visit Reasons: Follow Up Intake Note: Having dizzy spells in the morning. Allergies No Known Allergies [No Known Allergies*] Allergy (Unknown, Verified 06/27/24 14:10) Medication List - Last Reconciled 06/28/24 by Jose Kaplan MD atorvastatin 40 mg PO DAILY blood sugar diagnostic (Curious.comTouch Verio test strips) To test blood glucose 3 times a day blood-glucose meter (Curious.comTouch Verio Meter) To test blood glucose 3 times a day clopidogrel (Plavix) 75 mg PO DAILY 30 days dulaglutide (Trulicity) 1.5 mg (0.5 mL) subcut QWEEK 28 days flash glucose scanning reader (Anbado VideoStyle Seth 2 Starbuck) As directed flash glucose sensor (FreeStyle Seth 2 Sensor kit) As directed every 2 weeks glipizide 2.5 mg (1/2 x 5 mg) PO BID 90 days lancets (Motive Power systemuch Delica Lancets) To test blood glucose 3 times a day lisinopril 5 mg PO DAILY meclizine 25 mg PO TID 30 days metformin 1,000 mg PO BID 90 days trazodone 50 mg PO DAILY 14 days Tobacco use date assessed: 06/27/24 Fall risk assessment: No Falls in past year Last assessed Fall Risk: 06/27/24 Dental Screening Dental Screen Date: 12/22/23 HPI Follow Up HPI Details hyperlipidemia on rx; doing well; compliant [facility] Medical History Sleep apnea Obesity Stroke Type 2 diabetes mellitus with hyperglycemia Hyperlipidemia LDL goal <100 Essential hypertension Obesity due to excess calories Surgical History Hx of colonoscopy Family History Father Myocardial infarction Colon cancer Mother CHF (congestive heart failure) Brother Colon cancer Social History Household Members: None Housing: House Alcohol intake: current Alcohol intake frequency: 0-2 drinks per day Patient Tobacco Use Status: Former Tobacco user Tobacco use type: Cigarette Cigarettes Per Day: 2 e-Cigarette/Vaping Use: Never Used Second Hand Smoke Exposure: No service: No Current occupational status: retired Cognitive needs: No Hearing needs: No Vision needs: No Questionnaire PHQ-9 Over the last 2 weeks, how often have you been bothered by any of the following problems? 1. Little interest or pleasure in doing things: not at all 2. Feeling down, depressed, or hopeless: not at all 3. Trouble falling or staying asleep, or sleeping too much: not at all 4. Feeling tired or having little energy: not at all 5. Poor appetite or overeating: not at all 6. Feeling bad about yourself - or that you are a failure or have let yourself or your family down: not at all 7. Trouble concentrating on things, such as reading the newspaper or watching television: not at all 8. Moving or speaking so slowly that other people could have noticed. Or the opposite - being so fidgety or restless that you have been moving around a lot more than usual: not at all 9. Thoughts that you would be better off or of hurting yourself in some way: not at all Total score: 0 Depression Screening Interpretation: Negative Depression Screening Done: Yes 69271 - PHQ-9 Billing: Yes Source: Developed by Drs. Pranay Becerril, Kirstin Solo, Pedro Pinto and colleagues, with an educational padmini from [employer]. Thrive Questionnaire Date Thrive assessed: 12/22/23 GENEVIEVE-7 AMB Questionnaire GENEVIEVE-7 Date GENEVIEVE - 7 assessed: 07/22/23 Source: Developed by Drs. Pranay Becerril, Kirstin Solo, Pedro Pinto and colleagues, with an educational padmini from [employer]. Review of Systems Const Denies chills, Denies headache(s) and Denies weight loss ENT Denies headache(s) Card Denies chest pain, Denies syncope, Denies irregular heart rhythm and Denies dyspnea Resp Denies chest congestion, Denies cough and Denies dyspnea GI Denies abdominal pain, Denies change in stool character, Denies nausea and Denies vomiting Musc Denies deformity and Denies joint swelling Neuro Denies syncope and Denies headache(s) Physical exam (Primary Care) Vital Signs: Last Vital Signs Pulse 83 06/27/24 14:10 BP 134/68 06/27/24 14:10 Pulse Ox 97 06/27/24 14:10 Oxygen Delivery Method Room Air 06/27/24 14:10 BMI result Body Mass Index 35.4 Tobacco/Smoking Status: Tobacco use Status Tobacco use date assessed 06/27/24 06/27/24 14:14 Patient Tobacco Use Status Former Tobacco user 06/27/24 14:14 Tobacco use type Cigarette 06/27/24 14:14 e-Cigarette/Vaping Use Never Used 06/27/24 14:14 PHQ-9: PHQ-9 Score PHQ-9: Total score 0 06/27/24 14:14 Depression Screening Interpretation: Negative Thrive Assessment: Date of Thrive Assessment Date Thrive assessed 12/22/23 06/27/24 14:14 Const General: cooperative, comfortable, no acute distress and alert Neck Neck: Yes no lymphadenopathy Thyroid: Thyroid normal Resp Effort & Inspection: normal respiratory effort Auscultation: clear to auscultation bilaterally Percussion: percussion normal Cardio Jugular venous distension: no JVD Palpation: normal PMI Rate: regular rate Rhythm: regular rhythm Heart sounds: S1 normal heart sound present and S2 normal heart sound present GI Inspection: Yes normal to inspection Palpation (GI): No hepatosplenomegaly present Skin General skin exam: no rashes or lesions noted Extrem General: Yes no clubbing, cyanosis or edema Coding Level of Care Code Est Pt Level 3 (14448) Diagnoses HLD (hyperlipidemia) E78.5 Additional Codes PHQ-9 - 12916 - PHQ-9 Billing: Yes ([id number]) Assessment & Plan Assessment & Plan (1) HLD (hyperlipidemia): Code(s): E78.5 - Hyperlipidemia, unspecified Category: Medical Plan: stable; same rx
--- OUTSIDE RECORDS SUMMARY | 2024-06-28 22:00 | XMS_ITS | Patient Health Record ---
Author Organization [facility] Address [address] [place] [address] Care Team Providers Care Calibration Specialist Name Role Phone Jose Kaplan MD Primary Care Provider Jennaa Pranay Tellez Unavailable [phone] REASON FOR REFERRAL No Information MEDICATIONS Medication [...] utaneous once a week Active Multivitamin Active Bbjbjc-Trqgmdsrl-OIA Complex Active IMMUNIZATIONS Vaccine Route Administration Date Status Comme nts Influenza Unknown 07/26/2022 Administered SOCIAL HISTORY Sex Assigned At : Social History Observation Description Sex Assigned At Unknown PROBLEMS Problem Type ICD Code Onset Dates Problem Status W/U Status Risk SNOMED Code Notes Problem History of colon polyps (Z86.010) Active confirmed 697401685 Problem correction current use of anticoagulant (Z79.01) Active confirmed 401085646 Problem Family history of colon cancer (Z80.0) Active confirmed 573569633 Problem Colon cancer screening (Z12.11) Active confirmed 574915091 Problem Preprocedural examination (Z01.818) Active confirmed 861396882195368 Problem Diverticulosis of large intestine without perforation or abscess without bleeding (K57.30) Active confirmed Diverticul ar disease of colon (148744899) PLAN OF TREATMENT Future Test Test Name Order Date COLONOSCOPY 07/30/2022 Insurance Providers Payer Name Payer Address Payer Phone Subscriber Number Group Number Insured Name Patient Relationship to Insured Coverage Start Date Coverage End Date [facility] [address] [place] [address] [phone] [id number] Moreno Slaughter Self - patient is the insured MEDICAL (GENERAL) HISTORY Medical History History ICD Code CVA 15 years ago-no residual Sleep apnea , but not officially diagno sed and not using CPAP NIDDM Hypertension Urinary frequency Denies [place],Lung disease,renal disease Multiple colonoscopies and r emoval of polyps with Dr. Leggett--last one was at age 67 Surgical History Surgery Date(Month/Year)
== END 2024-06-27 14:33 | disposition home or self-care (01) ==
PROVIDERS: PCP Internal Medicine; Visit Provider Internal Medicine
DX: E78.5 Hyperlipidemia, unspecified (principal)

== ENCOUNTER → 2024-06-27 14:07 | Outpatient (BNVA) | payer MEDICARE, SELFPAY | PROVIDERS: PCP Internal Medicine; Visit Provider Internal Medicine | DX: E78.5 Hyperlipidemia, unspecified (principal) | CPT/HCPCS: 96127; 99212 ==

== ENCOUNTER 2024-09-15 07:39 | Outpatient (REF) | payer MEDICARE, SELFPAY ==
--- OUTSIDE RECORDS SUMMARY | 2024-09-15 07:42 | XMS_ITS | Patient Health Record ---
Author Organization [facility] Address [address] [place] [address] Care Team Providers Care Manager Food Safety Name Role Phone Jose Kaplan MD Primary Care Provider Jennaa Pranay Tellez Unavailable [phone] REASON FOR REFERRAL No Information MEDICATIONS Medication [...] utaneous once a week Active Multivitamin Active Cqloip-Kkincfepj-ABQ Complex Active IMMUNIZATIONS Vaccine Route Administration Date Status Comme nts Influenza Unknown 07/26/2022 Administered SOCIAL HISTORY Sex Assigned At : Social History Observation Description Sex Assigned At Unknown PROBLEMS Problem Type ICD Code Onset Dates Problem Status W/U Status Risk SNOMED Code Notes Problem Colon cancer screening (Z12.11) Active confirmed 459835230 Problem Diverticulosis of large intestine without perforation or abscess without bleeding (K57.30) Active confirmed Diverticul ar disease of colon (983424489) Problem Preprocedural examination (Z01.818) Active confirmed 193549271896026 Problem History of colon polyps (Z86.010) Active confirmed 844041385 Problem Family history of colon cancer (Z80.0) Active confirmed 267635078 Problem intermediate current use of anticoagulant (Z79.01) Active confirmed 473327531 PLAN OF TREATMENT Future Test Test Name Order Date COLONOSCOPY 07/30/2022 Insurance Providers Payer Name Payer Address Payer Phone Subscriber Number Group Number Insured Name Patient Relationship to Insured Coverage Start Date Coverage End Date [facility] [address] [place] [address] [phone] [id number] Moreno Slaughter Self - patient is the insured MEDICAL (GENERAL) HISTORY Medical History History ICD Code CVA 15 years ago-no residual Sleep apnea , but not officially diagno sed and not using CPAP NIDDM Hypertension Urinary frequency Denies [place],Lung disease,renal disease Multiple colonoscopies and r emoval of polyps with Dr. Leggett--last one was at age 67 Surgical History Surgery Date(Month/Year)
[2024-09-15 10:24] LABS: MANUAL DIFF FLAG NO
[2024-09-15 10:28] LABS: Basophils Absolute Auto 0.1 X10*3/uL (0.0-0.2); Basophils Percent Auto 0.7 % (0-2); Eosinophils Absolute Auto 0.1 X10*3/uL (0.0-0.4); Eosinophils Percent Auto 0.8 % (0-4); Hematocrit 41.3 % (42.0-52.0); Hemoglobin 14.4 g/dl (14.0-18.0); Imm Gran Abs Auto 0.02 X10*3/uL (0.00-0.03); Imm Gran Pct Auto 0.3 % (0.0-0.4); Lymphocytes Absolute Auto 2.3 X10*3/uL (1.2-4.9); Lymphocytes Percent Auto 31.3 % (20-40); Mean Corpuscular HGB Conc 34.9 g/dl (31.0-36.0); Mean Corpuscular Hemoglobin 31.8 pg (27.0-33.0); Mean Corpuscular Volume 91.2 fL (80.0-98.0); Mean Platelet Volume 10.9 fL (9.4-12.4); Monocytes Absolute Auto 0.7 X10*3/uL (0.1-1.2); Monocytes Percent Auto 8.7 % (2-11); Neutrophils Absolute Auto 4.3 x10*3/uL (2.0-8.3); Neutrophils Percent Auto 58.2 % (45-73); Platelet Count 195 X10*3/uL (160-400); Red Blood Count 4.53 X10*6/uL (4.60-5.80); Red Cell Distribution Width 12.7 % (11.0-16.0); White Blood Count 7.4 X10*3/uL (4.8-10.8)
[2024-09-15 10:36] LABS: Estimated Average Glucose 174 mg/dL; Hemoglobin A1C 225.9818 umol/L; Hemoglobin A1c % 7.7 % (<6.0); Total Hemoglobin (HGBA1C) 3745.4671 umol/L
[2024-09-15 10:54] LABS: Creatinine Urine 193.11 mg/dL; Microalbum/Creatinine Ratio Ur 21.7 ug/mg cr (<30)
[2024-09-15 11:26] LABS: Alanine Aminotransferase 40 U/L (0-40); Albumin Level 4.3 g/dL (3.5-5.0); Alkaline Phosphatase 84 U/L (39-117); Anion Gap 12 (12-20); Aspartate Amino Transferase 28 U/L (5-37); Bilirubin Total 0.7 mg/dL (0.0-1.0); Blood Urea Nitrogen 13 mg/dL (9-16); Calcium 9.2 mg/dL (8.4-10.2); Carbon Dioxide 22 mmol/L (22-29); Chloride 110 mmol/L (96-108); Cholesterol 123 mg/dL (<200); Estimated Glomerular Filt Rate > 60; Glucose Fasting 232 mg/dL (60-99); HDL Cholesterol 33 mg/dL (>40); LDL Cholesterol Calculated 38 mg/dL (<100); Potassium 4.3 mmol/L (3.3-5.1); Sodium 140 mmol/L (135-145); Thyroid Stimulating Hormone 1.91 uIU/mL (0.32-4.0); Total Protein 7.1 g/dL (6.5-8.0); Triglycerides 261 mg/dL (<150)
== END 2024-09-15 07:40 | disposition home or self-care (01) ==
LOC: HO.10HDL 07:39
PROVIDERS: Visit Provider Internal Medicine
DX: Z13.0 Encounter for screening for diseases of the blood and blood-forming organs and certain disorders involving the immune mechanism (principal); Z13.220 Encounter for screening for lipoid disorders; E11.69 Type 2 diabetes mellitus with other specified complication; E66.01 Morbid (severe) obesity due to excess calories; Z13.29 Encounter for screening for other suspected endocrine disorder
CPT/HCPCS: 36415; 80053; 80061; 82043; 82570; 83036; 84443; 85025

== ENCOUNTER 2024-09-20 13:28 | Outpatient (AMB) | payer MEDICARE, SELFPAY ==
--- NOTE | 2024-09-20 13:29 | MHC.PC.OV ---
Vital Signs 09/20/24 13:31 Height 5 ft 7 in Weight 227 lb 2 oz BMI 35.6 BP 126/64 Blood Pressure Location Lt brachial Position Sitting Pulse 74 Pulse Source Pulse Oximeter Temp 97.3 F Temp Source Temporal Artery Scan Pulse Oximetry (%) 97 Oxygen Delivery Method Room Air Intake Visit Reasons: 3 month f/u Intake Note: Patient is here to follow up on DM, HTN, HLD. Global Account Manager Required: No Baked Goods Stock Clerk: Not Required per policy Accompanied by: Self / Same As Patient Allergies No Known Allergies [No Known Allergies*] Allergy (Unknown, Verified 09/20/24 13:31) Tobacco use date assessed: 09/20/24 Fall risk assessment: No Falls in past year Last assessed Fall Risk: 09/20/24 Dental Screening Dental Screen Date: 09/20/24 Did you have a dental visit in the last 12 months?: No Did you have a dental problem in the last 6 months where you did not have access to dental care?: No Was dental information given to patient?: Patient has dentist HPI 3 month f/u HPI Details DM hyperlipdemia and hypertension; sees cardiology for CAD and doing well [facility] Medical History (Updated 01/03/24 @ 14:04 by Corey Sarmiento PA-C) Sleep apnea Obesity Stroke Type 2 diabetes mellitus with hyperglycemia Hyperlipidemia LDL goal <100 Essential hypertension Obesity due to excess calories Surgical History Hx of colonoscopy Family History Father Myocardial infarction Colon cancer Mother CHF (congestive heart failure) Brother Colon cancer Social History Household Members: None Housing: House Alcohol intake: current Alcohol intake frequency: 0-2 drinks per day Patient Tobacco Use Status: Former Tobacco user Tobacco use type: Cigarette Cigarettes Per Day: 2 e-Cigarette/Vaping Use: Never Used Second Hand Smoke Exposure: Yes service: No Current occupational status: retired Cognitive needs: No Hearing needs: No Vision needs: No Questionnaire PHQ-9 Over the last 2 weeks, how often have you been bothered by any of the following problems? 1. Little interest or pleasure in doing things: not at all 2. Feeling down, depressed, or hopeless: not at all 3. Trouble falling or staying asleep, or sleeping too much: not at all 4. Feeling tired or having little energy: not at all 5. Poor appetite or overeating: not at all 6. Feeling bad about yourself - or that you are a failure or have let yourself or your family down: not at all 7. Trouble concentrating on things, such as reading the newspaper or watching television: not at all 8. Moving or speaking so slowly that other people could have noticed. Or the opposite - being so fidgety or restless that you have been moving around a lot more than usual: not at all 9. Thoughts that you would be better off or of hurting yourself in some way: not at all Total score: 0 Depression Screening Interpretation: Negative Depression Screening Done: Yes Source: Developed by Drs. Pranay Becerril, Kirstin Solo, Pedro Pinto and colleagues, with an educational padmini from [employer]. Thrive Questionnaire Date Thrive assessed: 09/20/24 I am a: Patient What is your living situation today?: I have a steady place to live Within the past 12 months, did the food you bought not last and you didn't have the money to get more?: Never true Within the past 12 months, did you worry whether your food would run out before you got money to buy more?: Never true Do you have trouble paying for medicines?: No Do you have trouble getting transportation to medical appointments?: No Do you have trouble paying your heating and electricity bill?: No Do you have trouble taking care of your child, family member or friend?: No Do you have trouble with day-to-day activities such as bathing, preparing meals, shopping, managing finances, etc.?: No Are you currently unemployed and looking for a job?: No Are you interested in more education?: No Please select the resources that you would like help with: None Currently or been in a relationship where the following occur: No concerns reported THRIVE Score: 0 AUDIT C Alcohol Use Questionnaire (AUDIT-C) 1. How often do you have a drink containing alcohol?: 2-3 times a week 2. How many drinks containing alcohol do you have on a typical day when you are drinking?: 1 or 2 Total Score: 3 GENEVIEVE-7 AMB Questionnaire GENEVIEVE-7 Date GENEVIEVE - 7 assessed: 09/20/24 Feeling nervous, anxious, or on edge: 0 = Not at all Not being able to stop or control worryin = Not at all Worrying too much about different things: 0 = Not at all Trouble relaxin = Not at all Being so restless that it is hard to sit still: 0 = Not at all Becoming easily annoyed or irritable: 0 = Not at all Feeling afraid as if something awful might happen: 0 = Not at all Total GENEVIEVE-7 score (0-4 normal; 5-9 mild; 10-14 moderate; 15-21 severe): 0 Source: Developed by Drs. Pranay Becerril, Kirstin Solo, Pedro Pinto and colleagues, with an educational padmini from [employer]. Review of Systems Const Denies chills, Denies headache(s) and Denies weight loss ENT Denies headache(s) Card Denies chest pain, Denies syncope, Denies irregular heart rhythm and Denies dyspnea Resp Denies chest congestion, Denies cough and Denies dyspnea GI Denies abdominal pain, Denies change in stool character, Denies nausea and Denies vomiting Musc Denies deformity and Denies joint swelling Neuro Denies syncope and Denies headache(s) Physical exam (Primary Care) Vital Signs: Last Vital Signs Temp 97.3 F 09/20/24 13:31 Pulse 74 09/20/24 13:31 BP 126/64 09/20/24 13:31 Pulse Ox 97 09/20/24 13:31 Oxygen Delivery Method Room Air 09/20/24 13:31 BMI result Body Mass Index 35.6 Tobacco/Smoking Status: Tobacco use Status Tobacco use date assessed 09/20/24 09/20/24 13:36 Patient Tobacco Use Status Former Tobacco user 09/20/24 13:36 Tobacco use type Cigarette 09/20/24 13:36 e-Cigarette/Vaping Use Never Used 09/20/24 13:36 PHQ-9: PHQ-9 Score PHQ-9: Total score 0 09/20/24 13:36 Depression Screening Interpretation: Negative Thrive Assessment: Date of Thrive Assessment Date Thrive assessed 09/20/24 09/20/24 13:36 Currently or been in a relationship where the following occur: No concerns reported Const General: cooperative, comfortable, no acute distress and alert Neck Neck: Yes no lymphadenopathy Thyroid: Thyroid normal Resp Effort & Inspection: normal respiratory effort Auscultation: clear to auscultation bilaterally Percussion: percussion normal Cardio Jugular venous distension: no JVD Palpation: normal PMI Rate: regular rate Rhythm: regular rhythm Heart sounds: S1 normal heart sound present and S2 normal heart sound present GI Inspection: Yes normal to inspection Palpation (GI): No hepatosplenomegaly present Skin General skin exam: no rashes or lesions noted Extrem General: Yes no clubbing, cyanosis or edema Coding Level of Care Code Est Pt Level 4 (50757) Diagnoses Diabetes mellitus with coincident hypertension E11.9; I10 HLD (hyperlipidemia) E78.5 Essential hypertension I10 Assessment & Plan Assessment & Plan (1) Diabetes mellitus with coincident hypertension: Code(s): E11.9 - Type 2 diabetes mellitus without complications; I10 - Essential (primary) hypertension Category: Medical Plan: stable; some dietary indiscretion (2) HLD (hyperlipidemia): Code(s): E78.5 - Hyperlipidemia, unspecified Category: Medical Plan: stable; same rx (3) Essential hypertension: Code(s): I10 - Essential (primary) hypertension Category: Medical Plan: stable; same rx
[2024-09-20 13:31] VITALS: BP 126/64; PULSE 74; TEMP 36.3; O2SAT 97; BMI 35.6
--- OUTSIDE RECORDS SUMMARY | 2024-09-20 16:04 | XMS_ITS | Patient Health Record ---
Author Organization [facility] Address [address] [place] [address] Care Team Providers Care Coat Hanger Shaper Machine Operator Name Role Phone Jose Kaplan MD Primary Care Provider Pranay Vidales Unavailable [phone] Reason For Referral No Information Medications Medication SIG (Take, Route, Frequency, Duration) Notes [...] utaneous once a week Active Multivitamin Active Kaszlw-Fuqjsgsfl-KKB Complex Active Immunizations Vaccine Route Administration Date Status Comme nts Influenza Unknown 07/26/2022 Administered Problems Problem Type SNOMED Code ICD Code Onset Dates Problem Status W/U Status Risk Notes Problem 024704112 Colon cancer screening (Z12.11) Active confirmed Problem Diverticular disease of colon (131585599) Diverticulosis of large intestine without perforation or abscess without bleeding (K57.30) Active confirmed Problem 516922370819739 Preprocedural examination (Z01.818) Active confirmed Problem 603005639 History of colon polyps (Z86.010) Active confirmed Problem 699170227 Family history o f colon cancer (Z80.0) Active confirmed Problem 837309449 USP curren t use of anticoagulant (Z79.01) Active confirmed Plan Of Treatment Future Test Test Name Order Date COLONOSCOPY 07/30/2022 Insurance Providers Payer Name Payer Address Payer Phone Subscriber Number Group Number Insured Name Patient Relationship to Insured Coverage Start Date Coverage End Date [facility] [address] [place] [address] [phone] [id number] Moreno Slaughter Self - patient is the insured Medical (General) History Medical History History ICD Code CVA 15 years ago-no residual Sleep apnea , but not officially diagno sed and not using CPAP NIDDM Hypertension Urinary frequency Denies [place],Lung disease,renal disease Multiple colonoscopies and r emoval of polyps with Dr. Leggett--last one was at age 67 Surgical History Surgery Date(Month/Year)
== END 2024-09-20 14:02 | disposition home or self-care (01) ==
PROVIDERS: PCP Internal Medicine; Visit Provider Internal Medicine
DX: E11.9 Type 2 diabetes mellitus without complications (principal); I10 Essential (primary) hypertension; E78.5 Hyperlipidemia, unspecified

== ENCOUNTER → 2024-09-20 13:28 | Outpatient (BNVA) | payer MEDICARE, SELFPAY | PROVIDERS: PCP Internal Medicine; Visit Provider Internal Medicine | DX: E11.9 Type 2 diabetes mellitus without complications (principal); E78.5 Hyperlipidemia, unspecified; I10 Essential (primary) hypertension | CPT/HCPCS: 99212 ==

== ENCOUNTER 2025-01-09 07:43 | Outpatient (REF) | payer MEDICARE, SELFPAY ==
--- OUTSIDE RECORDS SUMMARY | 2025-01-09 07:45 | XMS_ITS | Patient Health Record ---
Author Organization [facility] Address [address] [place] [address] Care Team Providers Care Culinary Specialist Name Role Phone Jose Kaplan MD Primary Care Provider Pranay Vidales Unavailable [phone] Reason For Referral No Information Medications Medication [...] utaneous once a week Active Multivitamin Active Jccmto-Xunfroywa-ADY Complex Active Immunizations Vaccine Route Administration Date Status Comme nts Influenza Unknown 07/26/2022 Administered Problems Problem Type SNOMED Code ICD Code Onset Dates Problem Status W/U Status Risk Notes Problem 533969804 Colon cancer screening (Z12.11) Active confirmed Problem Diverticular disease of colon (675119572) Diverticulosis of large intestine without perforation or abscess without bleeding (K57.30) Active confirmed Problem 252090499998233 Preprocedural examination (Z01.818) Active confirmed Problem 871928795 History of colon polyps (Z86.010) Active confirmed Problem 944781346 Family history o f colon cancer (Z80.0) Active confirmed Problem 055132282 penitentiary curren t use of anticoagulant (Z79.01) Active confirmed Plan Of Treatment Future Test Test Name Order Date COLONOSCOPY 07/30/2022 Insurance Providers Payer Name Payer Address Payer Phone Subscriber Number Group Number Insured Name Patient Relationship to Insured Coverage Start Date Coverage End Date [facility] [address] [place] [address] [id number] Moreno Slaughter Self - patient is the insured Medical (General) History Medical History History ICD Code CVA 15 years ago-no residual Sleep apnea , but not officially diagno sed and not using CPAP NIDDM Hypertension Urinary frequency Denies [place],Lung disease,renal disease Multiple colonoscopies and r emoval of polyps with Dr. Leggett--last one was at age 67 Surgical History Surgery Date(Month/Year)
[2025-01-09 09:44] LABS: MANUAL DIFF FLAG NO
[2025-01-09 09:49] LABS: Basophils Absolute Auto 0.1 X10*3/uL (0.0-0.2); Basophils Percent Auto 0.8 % (0-2); Eosinophils Absolute Auto 0.1 X10*3/uL (0.0-0.4); Eosinophils Percent Auto 0.6 % (0-4); Hematocrit 39.6 % (42.0-52.0); Hemoglobin 13.8 g/dl (14.0-18.0); Imm Gran Abs Auto 0.01 X10*3/uL (0.00-0.03); Imm Gran Pct Auto 0.1 % (0.0-0.4); Lymphocytes Absolute Auto 2.3 X10*3/uL (1.2-4.9); Lymphocytes Percent Auto 25.9 % (20-40); Mean Corpuscular HGB Conc 34.8 g/dl (31.0-36.0); Mean Corpuscular Hemoglobin 31.7 pg (27.0-33.0); Mean Corpuscular Volume 90.8 fL (80.0-98.0); Mean Platelet Volume 10.7 fL (9.4-12.4); Monocytes Absolute Auto 0.6 X10*3/uL (0.1-1.2); Monocytes Percent Auto 7.1 % (2-11); Neutrophils Absolute Auto 5.9 x10*3/uL (2.0-8.3); Neutrophils Percent Auto 65.5 % (45-73); Platelet Count 209 X10*3/uL (160-400); Red Blood Count 4.36 X10*6/uL (4.60-5.80)
[2025-01-09 09:56] LABS: Estimated Average Glucose 171 mg/dL; Hemoglobin A1c % 7.6 % (<6.0)
[2025-01-09 10:05] LABS: Alanine Aminotransferase 24 U/L (0-40); Albumin Level 4.7 g/dL (3.5-5.0); Alkaline Phosphatase 63 U/L (39-117); Anion Gap 13 (12-20); Aspartate Amino Transferase 23 U/L (5-37); Bilirubin Total 0.7 mg/dL (0.0-1.0); Blood Urea Nitrogen 11 mg/dL (9-16); Calcium 9.4 mg/dL (8.4-10.2); Carbon Dioxide 25 mmol/L (22-29); Chloride 106 mmol/L (96-108); Cholesterol 119 mg/dL (<200); Estimated Glomerular Filt Rate > 60; Glucose Fasting 135 mg/dL (60-99); HDL Cholesterol 37 mg/dL (>40); LDL Cholesterol Calculated 58 mg/dL (<100); Potassium 4.3 mmol/L (3.3-5.1); Sodium 140 mmol/L (135-145); Total Protein 6.9 g/dL (6.5-8.0); Triglycerides 123 mg/dL (<150)
[2025-01-09 10:19] LABS: TSH reflex Free T4 1.99 uIU/mL (0.32-4.0); Vitamin D 25-OH Total 38.3 ng/mL (>30)
[2025-01-09 10:29] LABS: Appearance Urine Clear; Color Urine Yellow; Glucose Urine UA Negative (Negative); Leukocyte Esterase Urine Negative (Negative); Nitrite Urine Negative (Negative); PH 5.5 (5.0-9.0); Specific Gravity - Urine 1.025 (1.005-1.025); Urine Blood Negative (Negative); Urine Ketones Negative (Negative); Urine Protein Negative (Neg-Trace)
== END 2025-01-09 07:44 | disposition home or self-care (01) ==
LOC: HO.10HDL 07:43
DX: I10 Essential (primary) hypertension (principal); I25.10 Atherosclerotic heart disease of native coronary artery without angina pectoris; E78.5 Hyperlipidemia, unspecified; E11.42 Type 2 diabetes mellitus with diabetic polyneuropathy; E11.9 Type 2 diabetes mellitus without complications; E66.9 Obesity, unspecified
CPT/HCPCS: 36415; 80053; 80061; 81003; 82306; 83036; 84443; 85025

== ENCOUNTER 2025-01-11 12:58 | Outpatient (AMB) | payer MEDICARE, SELFPAY ==
--- NOTE | 2025-01-11 13:02 | A.OFFPC_ITS ---
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 Glass Grinder: Not Required per policy Accompanied by: Self / Same As Patient Allergies No Known Allergies (No Known Allergies*) Allergy (Unknown, Verified 01/11/25 13:11) Medication List - Last Reconciled 01/11/25 by RAMIREZ Ritter atorvastatin 40 mg PO DAILY blood sugar diagnostic (Crowdneticuch Verio test strips) To test blood glucose 3 times a day blood-glucose meter (Crowdn[employer]uch Verio Meter) To test blood glucose 3 times a day clopidogrel (Plavix) 75 mg PO DAILY 30 days dulaglutide (Trulicity) 1.5 mg (0.5 mL) subcut QWEEK 28 days flash glucose scanning reader (SignalDemandStyle Seth 2 Beaver) As directed flash glucose sensor (FreeStyle Seth 2 Sensor kit) As directed every 2 weeks glipizide 2.5 mg (1/2 x 5 mg) PO BID 90 days lancets (InfoBasisTouch Delica Lancets) To test blood glucose 3 times a day lisinopril 5 mg PO DAILY metformin 1,000 mg PO BID 90 days Tobacco use date assessed: 01/11/25 Fall risk assessment: No Falls in past year Last assessed Fall Risk: 01/11/25 Dental Screening Dental Screen Date: 09/20/[address] Kaplan HPI Details The patient is a 74-year-old male presenting with a routine follow-up for chronic condition management and transfer of care from Dr. Kaplan who retired. The patient has a history of anemia, with recent blood work indicating slightly low red blood cell counts. The cause of anemia is not yet determined, and further investigation with an iron panel is planned. The patient has Type 2 Diabetes Mellitus, with an A1c level trending positively from 8 to 7.6. The patient acknowledges dietary challenges, particularly with sugar intake, but has managed to lose 10 pounds recently. Hyperlipidemia is noted, with low HDL cholesterol levels. The patient is advised to continue taking fish oil supplements to improve HDL levels. The patient has a history of coronary artery disease, although he was unaware of this diagnosis until recently. He is currently on Plavix, possibly due to a family history of heart disease and mild atherosclerotic plaques noted in a previous carotid Doppler scan. The patient reports pain in the feet, particularly when walking or playing golf, which is suspected to be plantar fasciitis. He is advised to use comfortable shoes and consider magnesium supplements and Biofreeze to his calves for relief. [facility] Medical History (Updated 02/04/25 @ 13:57 by RAMIREZ Ritter) Sleep apnea Obesity Stroke Type 2 diabetes mellitus with hyperglycemia Hyperlipidemia LDL goal <100 Essential hypertension Obesity due to excess calories Surgical History Hx of colonoscopy Family History Father Myocardial infarction Colon cancer Mother CHF (congestive heart failure) Brother Colon cancer Social History Household Members: None Housing: House Alcohol intake: current Alcohol intake frequency: 0-2 drinks per day Patient Tobacco Use Status: Former Tobacco user Tobacco use type: Cigarette Cigarettes Per Day: 2 e-Cigarette/Vaping Use: Never Used Second Hand Smoke Exposure: Yes service: No Current occupational status: retired Cognitive needs: No Hearing needs: No Vision needs: No Questionnaire PHQ-9 Over the last 2 weeks, how often have you been bothered by any of the following problems? 1. Little interest or pleasure in doing things: several days 2. Feeling down, depressed, or hopeless: not at all 3. Trouble falling or staying asleep, or sleeping too much: not at all 4. Feeling tired or having little energy: not at all 5. Poor appetite or overeating: not at all 6. Feeling bad about yourself - or that you are a failure or have let yourself or your family down: not at all 7. Trouble concentrating on things, such as reading the newspaper or watching television: not at all 8. Moving or speaking so slowly that other people could have noticed. Or the opposite - being so fidgety or restless that you have been moving around a lot more than usual: not at all 9. Thoughts that you would be better off or of hurting yourself in some way: not at all Total score: 1 Depression Screening Interpretation: Positive Depression Screening Done: Yes Source: Developed by Drs. Pranay Becerril, Kirstin Solo, Pedro Pinto and colleagues, with an educational padmini from [employer]. Thrive Questionnaire Date Thrive assessed: 09/20/24 I am a: Patient What is your living situation today?: I have a steady place to live Within the past 12 months, did the food you bought not last and you didn't have the money to get more?: Never true Within the past 12 months, did you worry whether your food would run out before you got money to buy more?: Never true Do you have trouble paying for medicines?: No Do you have trouble getting transportation to medical appointments?: No Do you have trouble paying your heating and electricity bill?: No Do you have trouble taking care of your child, family member or friend?: No Do you have trouble with day-to-day activities such as bathing, preparing meals, shopping, managing finances, etc.?: No Are you currently unemployed and looking for a job?: No Are you interested in more education?: No Please select the resources that you would like help with: None Currently or been in a relationship where the following occur: No concerns reported THRIVE Score: 0 AUDIT C Alcohol Use Questionnaire (AUDIT-C) 1. How often do you have a drink containing alcohol?: Never Total Score: 0 GENEVIEVE-7 AMB Questionnaire GENEVIEVE-7 Date GENEVIEVE - 7 assessed: 09/20/24 Feeling nervous, anxious, or on edge: 0 = Not at all Not being able to stop or control worryin = Not at all Worrying too much about different things: 0 = Not at all Trouble relaxin = Not at all Being so restless that it is hard to sit still: 0 = Not at all Becoming easily annoyed or irritable: 0 = Not at all Feeling afraid as if something awful might happen: 0 = Not at all Total GENEVIEVE-7 score (0-4 normal; 5-9 mild; 10-14 moderate; 15-21 severe): 0 Source: Developed by Drs. Pranay Becerril, Pedro Fuentes Kroenke and colleagues, with an educational padmini from [employer]. Review of Systems Const Denies headache(s) Eyes Denies loss of vision ENT Reports vertigo (resolved spontaneously a while back), Denies dizziness, Denies headache(s) and Denies sore throat Card Denies chest pain, Denies leg edema and Denies lightheadedness Resp Denies cough, Denies hemoptysis and Denies wheezing GI Denies abdominal pain, Denies melena, Denies constipation, Denies diarrhea and Denies vomiting Denies dysuria, Denies urinary frequency and Denies urinary urgency Musc Denies arthralgias, Denies joint swelling, Denies numbness, Denies tingling and Reports other (reports foot pain with walking or golfing) Neuro Denies Abnormal speech present, Denies behavioral changes, Reports vertigo (resolved spontaneously a while back), Denies dizziness, Denies headache(s), Denies loss of vision, Denies memory loss, Denies numbness and Denies tingling Psych Denies anxiety, Denies behavioral changes, Denies depression, Denies memory loss and Denies panic attacks Kuldeep/Lymph Denies easy bleeding and Denies easy bruising Aller/Immun Denies wheezing Physical exam (Primary Care) Vital Signs: Last Vital Signs Temp 97.1 F 01/11/25 13:04 Pulse 98 01/11/25 13:04 BP 120/60 01/11/25 13:04 Pulse Ox 94 01/11/25 13:04 Oxygen Delivery Method Room Air 01/11/25 13:04 BMI result Body Mass Index 34.0 Tobacco/Smoking Status: Tobacco use Status Tobacco use date assessed 01/11/25 01/11/25 13:07 Patient Tobacco Use Status Former Tobacco user 01/11/25 13:07 Tobacco use type Cigarette 01/11/25 13:07 e-Cigarette/Vaping Use Never Used 01/11/25 13:07 PHQ-9: PHQ-9 Score PHQ-9: Total score 1 01/11/25 13:13 Depression Screening Interpretation: Positive Thrive Assessment: Date of Thrive Assessment Date Thrive assessed 09/20/24 01/11/25 13:07 Currently or been in a relationship where the following occur: No concerns reported Const General: healthy appearing, no acute distress, alert and awake Nutritional Appearance: well nourished Orientation/consciousness: oriented to person, oriented to place and oriented to time HENMT Ears: TM's normal bilaterally General nose exam: Normal nasal mucous membranes and turbinates present Eyes Conjunctivae: conjunctivae normal Sclerae: sclerae normal Pupils: Equal, round and reactive pupils present Neck Neck: Yes no lymphadenopathy and Yes no JVD Thyroid: Thyroid normal Carotids: no bruits Resp Effort & Inspection: normal respiratory effort and not tachypneic Auscultation: no crackles, no rales, no rhonchi and no wheezes Cardio Rate: regular rate Rhythm: regular rhythm Heart sounds: no murmurs and normal S1 and S2 GI Palpation (GI): Soft to palpation, nontender, no hepatomegaly and no splenomegaly Auscultation: normal bowel sounds Skin General skin exam: no rashes or lesions noted and dry skin Neuro General: oriented to person, oriented to place and oriented to time Cranial nerves: Yes Equal, round and reactive pupils present Speech: No Abnormal speech present Gait exam (Neuro): Normal gait present Motor exam (neuro): no tremor noted Extrem Right upper extremity: full ROM Left upper extremity: full ROM Right lower extremity: full ROM and foot Details: no edema; no tenderness and no unusual warmth; no edema Left lower extremity: full ROM and foot Details: no edema; no tenderness and no unusual warmth; no edema Psych Mental Status: mental status grossly normal Speech and movement: Normal speech and movement present Affect: normal affect Attitude: cooperative Thought process: Normal thought process present Results Reviewed Results Reviewed: Laboratory Tests 01/09/25 07:45 WBC 9.0 RBC 4.36 L Hgb 13.8 L Hct 39.6 L MCV 90.8 MCH 31.7 MCHC 34.8 RDW 13.0 Plt Count 209 MPV 10.7 Sodium 140 Potassium 4.3 Chloride 106 Carbon Dioxide 25 Anion Gap 13 BUN 11 Creatinine 0.68 Estimated GFR > 60 Fasting Glucose 135 H Estimat Average Glucose 171 Hemoglobin A1c % 7.6 H Calcium 9.4 Total Bilirubin 0.7 AST 23 ALT 24 Alkaline Phosphatase 63 Total Protein 6.9 Albumin 4.7 Triglycerides 123 Cholesterol 119 LDL Cholesterol, Calc 58 HDL Cholesterol 37 L 25-OH Vitamin D Total 38.3 TSH 1.99 Urine Color Yellow Urine Appearance Clear Urine pH 5.5 Ur Specific [place] 1.025 Urine Protein Negative Urine Glucose (UA) Negative Urine Ketones Negative Urine Blood Negative Urine Nitrite Negative Ur Leukocyte Esterase Negative Coding Level of Care Code Est Pt Level 4 (62952) Diagnoses Essential hypertension I10 Coronary artery disease involving [place] heart without angina pectoris, un specified vessel or lesion type I25.10 Coronary Disease-Associated Artery/Lesion type: unspecified vessel or lesion type [place] vs. transplanted heart: [place] heart Associated angina: without angina Pure hypercholesterolemia E78.00 Hyperlipidemia type: pure hypercholesterolemia Type 2 diabetes mellitus with diabetic polyneuropathy, without long-term current use of insulin E11.42 Diabetes mellitus shelter insulin use: without long filler cigar roller machine use Diabetes mellitus complication status: with neurologic complications Diabetes mellitus complication detail: with polyneuropathy Class 2 severe obesity due to excess calories with serious comorbidity and body mass index (BMI) of 35.0 to 35.9 in adult E66.01; Z68.35 Obesity classification: adult class 2 (BMI 35 - 39.9) Serious obesity comorbidity presence: with serious comorbidity Body mass index: BMI 35.0-35.9 Primary insomnia F51.01 Insomnia type: primary Time Spent (min) 39 Assessment & Plan Assessment & Plan (1) Essential hypertension: Code(s): I10 - Essential (primary) hypertension Category: Medical (2) CAD (coronary artery disease): Code(s): I25.10 - Atherosclerotic heart disease of [place] coronary artery without angina pectoris Category: Medical Qualifiers: Coronary Disease-Associated Artery/Lesion type: unspecified vessel or lesion type [place] vs. transplanted heart: [place] heart Associated angina: without angina Qualified Code(s): I25.10 - Atherosclerotic heart disease of [place] coronary artery without angina pectoris (3) HLD (hyperlipidemia): Code(s): E78.5 - Hyperlipidemia, unspecified Category: Medical Qualifiers: Hyperlipidemia type: pure hypercholesterolemia Qualified Code(s): E78.00 - Pure hypercholesterolemia, unspecified (4) DMII (diabetes mellitus, type 2): Code(s): E11.9 - Type 2 diabetes mellitus without complications Category: Medical Qualifiers: Diabetes mellitus long filler cigar roller machine insulin use: without long filler cigar roller machine use Diabetes mellitus complication status: with neurologic complications Diabetes mellitus complication detail: with polyneuropathy Qualified Code(s): E11.42 - Type 2 diabetes mellitus with diabetic polyneuropathy (5) Obesity due to excess calories: Code(s): E66.09 - Other obesity due to excess calories Category: Medical Qualifiers: Obesity classification: adult class 2 (BMI 35 - 39.9) Serious obesity comorbidity presence: with serious comorbidity Body mass index: BMI 35.0-35.9 Qualified Code(s): E66.01 - Morbid (severe) obesity due to excess calories; Z68.35 - Body mass index [BMI] 35.0-35.9, adult (6) Insomnia: Code(s): G47.00 - Insomnia, unspecified Category: Medical Qualifiers: Insomnia type: primary Qualified Code(s): F51.01 - Primary insomnia Plan The plan for anemia includes monitoring with an iron panel to determine the underlying cause and guide further management. For Type 2 Diabetes Mellitus, the patient is encouraged to continue dietary modifications and weight management to maintain the positive trend in A1c levels. Continue Trulicity 1.5 mg subQ weekly, glipizide 2.5 mg b.i.d. metformin 1000 mg b.i.d. Management of hyperlipidemia involves continuing fish oil supplements to improve HDL cholesterol levels. Continue atorvastatin 40 mg daily. The patient is advised to continue taking Plavix for coronary artery disease, with consideration of family history and previous findings of mild atherosclerosis. For plantar fasciitis, the patient is advised to use comfortable footwear, consider magnesium supplements, and apply Biofreeze to calves for symptomatic relief. Reinforced sleep hygiene Reinforced low-salt diet and continue lisinopril 5 mg daily Patient was informed and verbally consented to the use of an ambient scribe for clinic note documentation during this visit. Orders: Orders Complete Blood Count Auto Diff 6 Months Z00.00 - Encounter for general adult medical examination without abnormal findings, I10 - Essential (primary) hypertension, I25.10 - Atherosclerotic heart disease of [place] coronary artery without angina pectoris, E78.5 - Hyperlipidemia, unspecified, E11.42 - Type 2 diabetes mellitus with diabetic polyneuropathy Comprehensive [place]. Panel Fast 6 Months Z00.00 - Encounter for general adult medical examination without abnormal findings, I10 - Essential (primary) hypertension, I25.10 - Atherosclerotic heart disease of [place] coronary artery without angina pectoris, E78.5 - Hyperlipidemia, unspecified, E11.42 - Type 2 diabetes mellitus with diabetic polyneuropathy TSH reflex Free T4 6 Months Z00.00 - Encounter for general adult medical examination without abnormal findings, I10 - Essential (primary) hypertension, I25.10 - Atherosclerotic heart disease of [place] coronary artery without angina pectoris, E78.5 - Hyperlipidemia, unspecified, E11.42 - Type 2 diabetes mellitus with diabetic polyneuropathy UA CC w/rflx Micro + Cult 6 Months Z00.00 - Encounter for general adult medical examination without abnormal findings, I10 - Essential (primary) hypertension, I25.10 - Atherosclerotic heart disease of [place] coronary artery without angina pectoris, E78.5 - Hyperlipidemia, unspecified, E11.42 - Type 2 diabetes mellitus with diabetic polyneuropathy Vitamin D 25-OH Total 6 Months Z00.00 - Encounter for general adult medical examination without abnormal findings, I10 - Essential (primary) hypertension, I25.10 - Atherosclerotic heart disease of [place] coronary artery without angina pectoris, E78.5 - Hyperlipidemia, unspecified, E11.42 - Type 2 diabetes mellitus with diabetic polyneuropathy PSA,Total (Free>4and<10) 6 Months Z00.00 - Encounter for general adult medical examination without abnormal findings, I10 - Essential (primary) hypertension, I25.10 - Atherosclerotic heart disease of [place] coronary artery without angina pectoris, E78.5 - Hyperlipidemia, unspecified, E11.42 - Type 2 diabetes mellitus with diabetic polyneuropathy Vitamin B12 and Folate 6 Months Z00.00 - Encounter for general adult medical examination without abnormal findings, I10 - Essential (primary) hypertension, I25.10 - Atherosclerotic heart disease of [place] coronary artery without angina pectoris, E78.5 - Hyperlipidemia, unspecified, E11.42 - Type 2 diabetes mellitus with diabetic polyneuropathy Lipid Panel 6 Months Z00.00 - Encounter for general adult medical examination without abnormal findings, I10 - Essential (primary) hypertension, I25.10 - Atherosclerotic heart disease of [place] coronary artery without angina pectoris, E78.5 - Hyperlipidemia, unspecified, E11.42 - Type 2 diabetes mellitus with diabetic polyneuropathy Hemoglobin A1c 6 Months Z00.00 - Encounter for general adult medical examination without abnormal findings, I10 - Essential (primary) hypertension, I25.10 - Atherosclerotic heart disease of [place] coronary artery without angina pectoris, E78.5 - Hyperlipidemia, unspecified, E11.42 - Type 2 diabetes mellitus with diabetic polyneuropathy IRON PROFILE 6 Months Z00.00 - Encounter for general adult medical examination without abnormal findings, I10 - Essential (primary) hypertension, I25.10 - Atherosclerotic heart disease of [place] coronary artery without angina pectoris, E78.5 - Hyperlipidemia, unspecified, E11.42 - Type 2 diabetes mellitus with diabetic polyneuropathy Patient Instructions: Patient to return in 6 months
[2025-01-11 13:04] VITALS: BP 120/60; PULSE 98; TEMP 36.2; O2SAT 94; BMI 34.0
--- OUTSIDE RECORDS SUMMARY | 2025-01-11 15:29 | XMS_ITS | Patient Health Record ---
Author Organization [facility] Address [address] [place] [address] Care Team Providers Care Narcotics And Vice Detective Name Role Phone Jose Kaplan MD Primary Care Provider Pranay Vidales Unavailable [phone] Reason For Referral No Information Medications Medication [...] utaneous once a week Active Multivitamin Active Ubbuqm-Dydheegvj-JLX Complex Active Immunizations Vaccine Route Administration Date Status Comme nts Influenza Unknown 07/26/2022 Administered Problems Problem Type SNOMED Code ICD Code Onset Dates Problem Status W/U Status Risk Notes Problem 250359836 Colon cancer screening (Z12.11) Active confirmed Problem Diverticular disease of colon (841474624) Diverticulosis of large intestine without perforation or abscess without bleeding (K57.30) Active confirmed Problem [id number] Preprocedural examination (Z01.818) Active confirmed Problem 442605582 History of colon polyps (Z86.010) Active confirmed Problem 803620172 Family history o f colon cancer (Z80.0) Active confirmed Problem 602353129 [facility] curren t use of anticoagulant (Z79.01) Active confirmed Plan Of Treatment Future Test Test Name Order Date COLONOSCOPY 07/30/2022 Insurance Providers Payer Name Payer Address Payer Phone Subscriber Number Group Number Insured Name Patient Relationship to Insured Coverage Start Date Coverage End Date [facility] [address] [place] [address] [phone] [id number] Moreno Slaughter Self - patient is the insured Medical (General) History Medical History History ICD Code CVA 15 years ago-no residual Sleep apnea , but not officially diagno sed and not using CPAP NIDDM Hypertension Urinary frequency Denies ME,Lung disease,renal disease Multiple colonoscopies and r emoval of polyps with Dr. Leggett--last one was at age 67 Surgical History Surgery Date(Month/Year)
== END 2025-01-11 13:45 | disposition home or self-care (01) ==
LOC: HO.HMCH 12:59
DX: I10 Essential (primary) hypertension (principal); E11.42 Type 2 diabetes mellitus with diabetic polyneuropathy; E66.01 Morbid (severe) obesity due to excess calories; Z68.35 Body mass index [BMI] 35.0-35.9, adult; I25.10 Atherosclerotic heart disease of native coronary artery without angina pectoris; E78.00 Pure hypercholesterolemia, unspecified; F51.01 Primary insomnia

== ENCOUNTER → 2025-01-11 12:58 | Outpatient (BNVA) | payer MEDICARE, SELFPAY | DX: I25.10 Atherosclerotic heart disease of native coronary artery without angina pectoris (principal); I10 Essential (primary) hypertension; E78.00 Pure hypercholesterolemia, unspecified; E11.42 Type 2 diabetes mellitus with diabetic polyneuropathy; E66.01 Morbid (severe) obesity due to excess calories; F51.01 Primary insomnia; Z68.35 Body mass index [BMI] 35.0-35.9, adult | CPT/HCPCS: 96127; 99212 ==

== ENCOUNTER 2025-06-26 08:32 | Outpatient (REF) | payer MEDICARE, SELFPAY ==
[2025-06-26 10:16] LABS: MANUAL DIFF FLAG NO
[2025-06-26 10:25] LABS: Appearance Urine Clear; Glucose Urine UA Negative (Negative); PH 5.5 (5.0-9.0); Specific Gravity - Urine 1.020 (1.005-1.025)
[2025-06-26 10:41] LABS: Alanine Aminotransferase 29 U/L (0-40); Albumin Level 4.7 g/dL (3.5-5.0); Alkaline Phosphatase 68 U/L (39-117); Anion Gap 11 (12-20); Aspartate Amino Transferase 25 U/L (5-37); Blood Urea Nitrogen 12 mg/dL (9-16); Calcium 9.6 mg/dL (8.4-10.2); Carbon Dioxide 27 mmol/L (22-29); Chloride 108 mmol/L (96-108); Cholesterol 119 mg/dL (<200); Estimated Glomerular Filt Rate > 60; HDL Cholesterol 47 mg/dL (>40); Iron 90 mcg/dL (45-160); Percent Iron Saturation 31 % (15-50); Potassium 4.1 mmol/L (3.3-5.1); Sodium 142 mmol/L (135-145); Total Iron Binding Capacity 287 mcg/dL (228-428); Total Protein 6.9 g/dL (6.5-8.0); Triglycerides 94 mg/dL (<150); Unsaturated Iron Binding 197 ug/dL
[2025-06-26 10:51] LABS: Red Blood Count 4.45 X10*6/uL (4.60-5.80); White Blood Count 7.5 X10*3/uL (4.8-10.8)
[2025-06-26 10:52] LABS: Hematocrit 41.4 % (42.0-52.0); Hemoglobin 14.0 g/dl (14.0-18.0); Imm Gran Abs Auto 0.02 X10*3/uL (0.00-0.03); Imm Gran Pct Auto 0.3 % (0.0-0.4); Lymphocytes Absolute Auto 2.1 X10*3/uL (1.2-4.9); Mean Corpuscular HGB Conc 33.8 g/dl (31.0-36.0); Mean Corpuscular Hemoglobin 31.5 pg (27.0-33.0); Mean Corpuscular Volume 93.0 fL (80.0-98.0); NRBC Abs Auto 0.000 X10*3/uL (0.0-0.012); NRBC Pct Auto 0.0 /100WBC (0.0-0.2); Platelet Count 194 X10*3/uL (160-400)
[2025-06-26 10:54] LABS: PSA,Total (Free>4and<10) 0.30 ng/mL (0.00-4.00)
[2025-06-26 11:06] LABS: Folate 12.6 ng/mL (> or = 4.0); Vitamin B12 297 pg/mL (200-900)
== END 2025-06-26 08:33 | disposition home or self-care (01) ==
LOC: HO.10HDL 08:32
DX: Z00.00 Encounter for general adult medical examination without abnormal findings (principal); Z12.5 Encounter for screening for malignant neoplasm of prostate; I10 Essential (primary) hypertension; I25.10 Atherosclerotic heart disease of native coronary artery without angina pectoris; E78.5 Hyperlipidemia, unspecified; E11.42 Type 2 diabetes mellitus with diabetic polyneuropathy
CPT/HCPCS: 36415; 80053; 80061; 81003; 82306; 82607; 82746; 83036; 83540; 84153; 84443; 85025

== ENCOUNTER 2025-07-04 13:52 | Outpatient (AMB) | payer MEDICARE, SELFPAY ==
--- NOTE | 2025-07-04 14:06 | A.OFFPC_ITS ---
Vital Signs 07/04/25 14:07 Height 5 ft 7 in Weight 213 lb 6 oz BMI 33.4 BP 134/74 Blood Pressure Location Lt brachial Position Sitting Respiration 18 Pulse 73 Pulse Source Pulse Oximeter Temp 97.1 F Temp Source Temporal Artery Scan Pulse Oximetry (%) 97 Oxygen Delivery Method Room Air Intake Visit Reasons: Annual Exam - see comments Oxyacetylene Burner Required: No Accompanied by: Self / Same As Patient Allergies No Known Allergies (No Known Allergies*) Allergy (Unknown, Verified 07/04/25 14:29) Tobacco use date assessed: 07/04/25 Last assessed Fall Risk: 07/04/25 Dental Screening Dental Screen Date: 07/04/25 HPI Annual Exam - see comments HPI Details Dentist: up to date Eye: up to date Snellen: Right: Left: Corrected vision: yes, glasses, cheaters STI screening: Colonoscopy: due to have in two years, removed 2 polyps 77 y Pap Smer:n/a PHQ-9: Flu: given in office today COVID: x3 Tdap: 2017 Diet: regular Exercise: [facility] Medical History Sleep apnea Obesity Stroke Type 2 diabetes mellitus with hyperglycemia Hyperlipidemia LDL goal <100 Essential hypertension Obesity due to excess calories Surgical History Hx of colonoscopy Family History Father Myocardial infarction Colon cancer Mother CHF (congestive heart failure) Brother Colon cancer Social History Household Members: None Housing: House Alcohol intake: current Alcohol intake frequency: 0-2 drinks per day Patient Tobacco Use Status: Former Tobacco user Tobacco use type: Cigarette Cigarettes Per Day: 2 e-Cigarette/Vaping Use: Never Used Second Hand Smoke Exposure: Yes service: No Current occupational status: retired Cognitive needs: No Hearing needs: No Vision needs: No Questionnaire Thrive Questionnaire Date Thrive assessed: 07/04/25 What is your living situation today?: I have a steady place to live Within the past 12 months, did the food you bought not last and you didn't have the money to get more?: Never true Within the past 12 months, did you worry whether your food would run out before you got money to buy more?: Never true Do you have trouble paying for medicines?: No Do you have trouble getting transportation to medical appointments?: No Do you have trouble paying your heating and electricity bill?: No Do you have trouble taking care of your child, family member or friend?: No Do you have trouble with day-to-day activities such as bathing, preparing meals, shopping, managing finances, etc.?: No Are you currently unemployed and looking for a job?: No Are you interested in more education?: No Please select the resources that you would like help with: None Currently or been in a relationship where the following occur: No concerns reported THRIVE Score: 0 GENEVIEVE-7 AMB Questionnaire GENEVIEVE-7 Date GENEVIEVE - 7 assessed: 09/20/24 Source: Developed by Drs. Pranay Becerril, Kirstin Solo, Pedro Pinto and colleagues, with an educational padmini from [employer] Physical exam (Primary Care) Vital Signs: Last Vital Signs Temp 97.1 F 07/04/25 14:07 Pulse 73 07/04/25 14:07 Resp 18 07/04/25 14:07 BP 134/74 07/04/25 14:07 Pulse Ox 97 07/04/25 14:07 Oxygen Delivery Method Room Air 07/04/25 14:07 BMI result Body Mass Index 33.4 Tobacco/Smoking Status: Tobacco use Status Tobacco use date assessed 07/04/25 07/04/25 14:09 Patient Tobacco Use Status Former Tobacco user 07/04/25 14:09 Tobacco use type Cigarette 07/04/25 14:09 e-Cigarette/Vaping Use Never Used 07/04/25 14:09 Thrive Assessment: Date of Thrive Assessment Date Thrive assessed 07/04/25 07/04/25 14:09 Currently or been in a relationship where the following occur: No concerns reported Office Procedures Flu Questionnaire Does the patient have a severe egg allergy?: No Does the patient have severe life threatening allergies?: No Does the patient have a fever or illness today?: No Has the patient ever had Guillain-[place] Syndrome?: No Has the patient ever had any past reaction to a flu shot?: No Immunizations Fluarix (PF) 45 mcg (15 mcg x 3)/0.5 mL IM syringe Performing Provider: RAMIREZ Ritter Performing Location: [facility] Administered by: Bhavani Ferguson LPN on 07/04/25 14:41 Dose Route Admin Location Dispensed Lot Number Expiration Date NDC Commercial [employer] Underwriter 0.5 mL IM Right Deltoid 0.5 mL [id number] 01/15/26 [id number] [employer] VIS Given Date VIS Provided VIS Publication Date 07/04/25 Single Vaccine 24 Eligibility Eligibility Date Funding Source Not [facility] Eligible 07/04/25 Private Coding Assessment & Plan Assessment & Plan Orders: Orders Influenza [id number] Immunization Today Z23 - Encounter for immunization Lipid Panel 6 Months E11.42 - Type 2 diabetes mellitus with diabetic polyneuropathy, E11.65 - Type 2 diabetes mellitus with hyperglycemia, E11.9 - Type 2 diabetes mellitus without complications, E66.9 - Obesity, unspecified, E78.00 - Pure hypercholesterolemia, unspecified, H81.13 - Benign paroxysmal vertigo, bilateral, I10 - Essential (primary) hypertension, I25.10 - Atherosclerotic heart disease of [place] coronary artery without angina pectoris, R42 - Dizziness and giddiness Vitamin D 25-OH Total 6 Months E11.42 - Type 2 diabetes mellitus with diabetic polyneuropathy, E11.65 - Type 2 diabetes mellitus with hyperglycemia, E11.9 - Type 2 diabetes mellitus without complications, E66.9 - Obesity, unspecified, E78.00 - Pure hypercholesterolemia, unspecified, H81.13 - Benign paroxysmal vertigo, bilateral, I10 - Essential (primary) hypertension, I25.10 - Atherosclerotic heart disease of [place] coronary artery without angina pectoris, R42 - Dizziness and giddiness Hemoglobin A1c 6 Months E11.42 - Type 2 diabetes mellitus with diabetic polyneuropathy, E11.65 - Type 2 diabetes mellitus with hyperglycemia, E11.9 - Type 2 diabetes mellitus without complications, E66.9 - Obesity, unspecified, E78.00 - Pure hypercholesterolemia, unspecified, H81.13 - Benign paroxysmal vertigo, bilateral, I10 - Essential (primary) hypertension, I25.10 - Atherosclerotic heart disease of [place] coronary artery without angina pectoris, R42 - Dizziness and giddiness Complete Blood Count Auto Diff 6 Months E11.42 - Type 2 diabetes mellitus with diabetic polyneuropathy, E11.65 - Type 2 diabetes mellitus with hyperglycemia, E11.9 - Type 2 diabetes mellitus without complications, E66.9 - Obesity, unspecified, E78.00 - Pure hypercholesterolemia, unspecified, H81.13 - Benign paroxysmal vertigo, bilateral, I10 - Essential (primary) hypertension, I25.10 - Atherosclerotic heart disease of [place] coronary artery without angina pectoris, R42 - Dizziness and giddiness Comprehensive [place]. Panel Fast 6 Months E11.42 - Type 2 diabetes mellitus with diabetic polyneuropathy, E11.65 - Type 2 diabetes mellitus with hyperglycemia, E11.9 - Type 2 diabetes mellitus without complications, E66.9 - Obesity, unspecified, E78.00 - Pure hypercholesterolemia, unspecified, H81.13 - Benign paroxysmal vertigo, bilateral, I10 - Essential (primary) hypertension, I25.10 - Atherosclerotic heart disease of [place] coronary artery without angina pectoris, R42 - Dizziness and giddiness UA CC w/rflx Micro + Cult 6 Months E11.42 - Type 2 diabetes mellitus with diabetic polyneuropathy, E11.65 - Type 2 diabetes mellitus with hyperglycemia, E11.9 - Type 2 diabetes mellitus without complications, E66.9 - Obesity, unspecified, E78.00 - Pure hypercholesterolemia, unspecified, H81.13 - Benign paroxysmal vertigo, bilateral, I10 - Essential (primary) hypertension, I25.10 - Atherosclerotic heart disease of [place] coronary artery without angina pectoris, R42 - Dizziness and giddiness TSH reflex Free T4 6 Months E11.42 - Type 2 diabetes mellitus with diabetic polyneuropathy, E11.65 - Type 2 diabetes mellitus with hyperglycemia, E11.9 - Type 2 diabetes mellitus without complications, E66.9 - Obesity, unspecified, E78.00 - Pure hypercholesterolemia, unspecified, H81.13 - Benign paroxysmal vertigo, bilateral, I10 - Essential (primary) hypertension, I25.10 - Atherosclerotic heart disease of [place] coronary artery without angina pectoris, R42 - Dizziness and giddiness Medications: Refilled glipizide 2.5 mg (1/2 x 5 mg) PO BID 90 tabs 3RF 90 days E11.65 - Type 2 diabetes mellitus with hyperglycemia
[2025-07-04 14:07] VITALS: BP 134/74; PULSE 73; RESP 18; TEMP 36.2; O2SAT 97; BMI 33.4
--- OUTSIDE RECORDS SUMMARY | 2025-07-04 18:26 | XMS_ITS | Patient Health Record ---
Author Organization [facility] Address [address] [place] [address] Care Team Providers Care Ct Technician Name Role Phone Jose Kaplan MD Primary Care Provider Pranay Vidales Unavailable [phone] Reason For Referral No Information Medications Medication SIG (Take, Route, Frequency, Duration) Notes Start Date End Date Status Atorvastatin Calcium 40 MG Tablet Oral; Duration: 90 Active metFORMIN HCl 1000 MG Tablet TAKE ONE TABLET BY MOUTH TWICE A DAY Oral; Duration: 90 Active glipiZIDE 5 MG Tablet TAKE HALF OF A TAB LET BY MOUTH TWO TIMES A DAY Oral; Duration: 90 Active Fish Oil Active CoQ-10 Active Lisinopril 5 MG Tablet TAKE ONE TABLET B Y MOUTH EVERY DAY Oral; Duration: 90 Active Clopidogrel Bisulfate 75 MG Tablet TAKE 1 TABLET BY MOUTH DAILY. Oral; Duration: 30 Active Trulicity 0.75 MG/0.5ML Solution Pen-injector as directed Subcutaneous once a week Active Multivitamin Active Ezvfse-Tlafhmylu-IBR Complex Active Immunizations Vaccine Route Administration Date Status Comme nts Influenza Unknown 07/26/2022 Administered Social History Social History Additional Details Category Social Info Options Details Miscellaneous: Occupation: Retired Section Notes: Nonsmoker; no significant al cohol Problems Problem Type SNOMED Code ICD Code Onset Dates Problem Status W/U Status Risk Notes Problem Colon cancer screening (784981462) Colon cancer screening (Z12.11) Active confirmed Problem Diverticular disease of colon (350809505) Diverticulosis of large intestine without perforation or abscess without bleeding (K57.30) Active confirmed Problem Preprocedural examination (216673475122269) Preprocedural examination (Z01.818) Active confirmed Problem History of polyp of colon (situation) (858050863) History of colon polyps (Z86.010) Active confirmed Problem Family History of Cancer of Colon (Situation) (437226113) Family history of colon cancer (Z80.0) Active confirmed Problem Long-term current use of anticoagulant (117472260) long-term current use of anticoagulant (Z79.01) Active confirmed Plan Of Treatment Future Test Test Name Order Date COLONOSCOPY 07/30/2022 Insurance Providers Payer Name Payer Address Payer Phone Subscriber Number Group Number Insured Name Patient Relationship to Insured Coverage Start Date Coverage End Date [facility] [address] [place] [address] [phone] [id number] Moreno Slaughter Self - patient is the [...]
== END 2025-07-04 14:55 | disposition home or self-care (01) ==
LOC: HO.HMCH 13:53
DX: Z23 Encounter for immunization (principal)

== ENCOUNTER → 2025-07-04 13:52 | Outpatient (BNVA) | payer MEDICARE, SELFPAY | DX: Z00.00 Encounter for general adult medical examination without abnormal findings (principal); E11.42 Type 2 diabetes mellitus with diabetic polyneuropathy; M72.2 Plantar fascial fibromatosis; I10 Essential (primary) hypertension; I25.10 Atherosclerotic heart disease of native coronary artery without angina pectoris; E78.00 Pure hypercholesterolemia, unspecified; E66.01 Morbid (severe) obesity due to excess calories; F51.01 Primary insomnia; N52.9 Male erectile dysfunction, unspecified; G47.00 Insomnia, unspecified; Z23 Encounter for immunization; Z68.35 Body mass index [BMI] 35.0-35.9, adult; Z68.33 Body mass index [BMI] 33.0-33.9, adult | CPT/HCPCS: 90471; 90656; 99397 ==